=== PATIENT | female | born 1945 | race Caucasian/White ===

== ENCOUNTER → 2017-08-23 12:56 | Outpatient (CLI) | payer MEDICARE, SELFPAY ==
--- NOTE | 2017-08-23 12:59 | BD_ITS ---
STUDY: DUAL ENERGY X-RAY ABSORPTIOMETRY / DXA REASON FOR EXAM: Female, 71 years old. The patient is postmenopausal. Loss of height of 1 inch. TECHNIQUE: Bone Mineral Density (BMD) measurements of lumbar spine and bilateral hips were obtained. COMPARISON: Comparison is made with prior study dated June 22, 2011. FINDINGS: Lumbar Spine (L1-L4): g/cm2 (1.106) / T-score (-0.6) / Z-score (1.0) Findings are suggestive of normal bone density with a low fracture risk. Left Femur Total: g/cm2 (0.760) / T-score (-2.0) / Z-score (-0.5) Left Femoral Neck: g/cm2 (0.751) / T-score (-2.1) / Z-score (-0.4) Right Femur Total: g/cm2 (0.729) / T-score (-2.2) / Z-score (0.8) Right Femoral Neck: g/cm2 (0.688) / T-score (-2.5) / Z-score (-0.8) The T-Scores on the most recent prior examination were: Lumbar Spine (L1-L4): There has been improvement of bone density since the previous examination. Left Femur Total: which represents a worsening of 1.3%. Right Femur Total: which represents an improvement of 0.4%. BD/Dexa Bone Density Study IMPRESSION: The patient is considered osteopenic as outlined below according to World Jamison Organization (WHO) criteria with a moderate fracture risk. There has been improvement of bone density since the previous examination. Reference Information: The T-score is the number of standard deviations above or below the standard which is normal for young adults at their peak bone mineral density. The World Health Organization (WHO) interprets the T-scores as follows: Above -1 Normal bone density Between -1 and -2.5 Osteopenia Equal to / or below -2.5 Osteoporosis As a practical clinical guideline, osteopenia may be graded as follows: Mild -1 through -1.5 Moderate -1.6 through -2.0 Severe -2.1 through -2.4 The Z-score is the number of standard deviations above or below age-matched controls. A Z-score of less than -1.5 would be considered abnormal. References: 1. NIH Osteoporosis and Related Bone Diseases http://www.osteo.org 2. International Society for Clinical Densitometry http://www.iscd.org 3. National Osteoporosis Foundation http://www.nof.org Electronically Signed: Mark Parker MD at 13:52 EDT Tel [phone], Service support ,
--- NOTE | 2017-08-23 13:08 | HPBI_ITS ---
MAMMOGRAPHY - BILATERAL SCREENING REASON FOR EXAM: Female, 71 years old. Routine annual screening examination. PERTINENT HISTORY: Non-contributory. TECHNIQUE: Digital bilateral breast ce (3D mammographic acquisition) in the CC and MLO projections. 2-D mediolateral oblique (MLO) and craniocaudad (CC) views of both breasts were obtained. CAD: Full Field Digital Mammography with Computer Added Detection was performed. COMPARISON: Comparison is made with prior study dated August 16, 2016 and August 12, 2015. FINDINGS: Breast Composition: The breasts are almost entirely fatty. There are no dominant masses or suspicious calcifications. Stable 7 mm well-defined nodule in the upper outer portion of the left breast. This most likely represents a small intramammary lymph node. No other significant abnormalities are identified. There has been no significant change since the prior study. HPBI/SCREENING MAMM (CAD), BILAT IMPRESSION: Stable bilateral screening mammogram. Yearly follow-up mammogram recommended. (A) ASSESSMENT CATEGORY: BIRADS Category 2: Benign. A letter regarding these results will be sent to the patient by the facility within 30 days. Approximately 10% of breast cancers are not detected by mammography. A normal mammogram should not delay biopsy of a clinically suspicious abnormality. [id number] Electronically Signed: Mark Parker MD at 8:02 EDT Tel [phone], Service support ,
--- NOTE | 2017-08-23 13:08 | HPBI_ITS ---
MAMMOGRAPHY - BILATERAL SCREENING REASON FOR EXAM: Female, 71 years old. Routine annual screening examination. PERTINENT HISTORY: Non-contributory. TECHNIQUE: Digital bilateral breast edis (3D mammographic acquisition) in the CC and MLO projections. 2-D mediolateral oblique (MLO) and craniocaudad (CC) views of both breasts were obtained. CAD: Full Field Digital Mammography with Computer Added Detection was performed. COMPARISON: Comparison is made with prior study dated August 16, 2016 and August 12, 2015. FINDINGS: Breast Composition: The breasts are almost entirely fatty. There are no dominant masses or suspicious calcifications. Stable 7 mm well-defined nodule in the upper outer portion of the left breast. This most likely represents a small intramammary lymph node. No other significant abnormalities are identified. There has been no significant change since the prior study. BI/Bilat Brst Screen Edis Add-On IMPRESSION: Stable bilateral screening mammogram. Yearly follow-up mammogram recommended. (A) ASSESSMENT CATEGORY: BIRADS Category 2: Benign. A letter regarding these results will be sent to the patient by the facility within 30 days. Approximately 10% of breast cancers are not detected by mammography. A normal mammogram should not delay biopsy of a clinically suspicious abnormality. [id number] Electronically Signed: Mark Parker MD at 8:02 EDT Tel [phone], Service support ,
== END ==
PROVIDERS: Family Provider Family Medicine; PCP Family Medicine; Visit Provider Obstetrics & Gynecology
DX: Z12.31 Encounter for screening mammogram for malignant neoplasm of breast (principal); M85.9 Disorder of bone density and structure, unspecified
CPT/HCPCS: 77063; 77067; 77080

== ENCOUNTER → 2018-08-24 11:49 | Outpatient (CLI) | payer MEDICARE, SELFPAY ==
--- NOTE | 2018-08-24 11:52 | BI_ITS ---
MAMMOGRAPHY - BILATERAL SCREENING REASON FOR EXAM: Female, 72 years old. Routine annual screening examination. PERTINENT HISTORY: Non-contributory. TECHNIQUE: Digital bilateral breast ce (3D mammographic acquisition) in the CC and MLO projections. 2-D mediolateral oblique (MLO) and craniocaudad (CC) views of both breasts were obtained. CAD: Full Field Digital Mammography with Computer Added Detection was performed. COMPARISON: Comparison is made with prior study dated August 23, 2017 and August 16, 2016. FINDINGS: Breast Composition: The breasts are almost entirely fatty. There are no dominant masses or suspicious calcifications. Stable 6 mm nodular density in the upper slightly lateral aspect of the left breast. No other significant abnormalities are identified. There has been no significant change since the prior study. BI/SCREENING MAMM (CAD), BILAT IMPRESSION: Stable bilateral screening mammogram. Yearly follow-up mammogram recommended. (A) ASSESSMENT CATEGORY: BIRADS Category 2: Benign. A letter regarding these results will be sent to the patient by the facility within 30 days. Approximately 10% of breast cancers are not detected by mammography. A normal mammogram should not delay biopsy of a clinically suspicious abnormality. [id number] Electronically Signed: Mark Parker, at 13:26 EDT , Service support ,
== END ==
PROVIDERS: Family Provider Family Medicine; PCP Family Medicine; Referring Provider Obstetrics & Gynecology; Visit Provider Obstetrics & Gynecology
DX: Z12.31 Encounter for screening mammogram for malignant neoplasm of breast (principal)
CPT/HCPCS: 77063; 77067

== ENCOUNTER 2019-03-18 11:41 | Emergency (ER) | payer MEDICARE, SELFPAY ==
[2019-03-18 11:41] VITALS: BP 166/87; PULSE 85; RESP 18; TEMP 36.6; O2SAT 98; BMI 20.2
[2019-03-18 12:00] VITALS: BP 161/99; PULSE 92; RESP 18; O2SAT 98
--- NOTE | 2019-03-18 12:05 | EKG12_ITS ---
Test Reason : Blood Pressure : / mmHG Vent. Rate : 080 BPM Atrial Rate : 080 BPM P-R Int : 130 ms QRS Dur : 088 ms QT Int : 382 ms P-R-T Axes : 066 055 049 degrees QTc Int : 440 ms Normal sinus rhythm Normal ECG Confirmed by ALLISON SHANE, KANDIS ([id number]), editor in chief SCOT GUERRA ([id number]) on 03/20/2019 11:19:05 AM Referred By: Confirmed By:KANDIS COOPER MD
--- NOTE | 2019-03-18 12:05 | RAD_ITS ---
STUDY: X-RAY CHEST REASON FOR EXAM: Female, 73 years old. Chest and epigastric pain TECHNIQUE: AP COMPARISON: None. FINDINGS: The lungs are clear and expanded. There is no demonstrated pleural abnormality. Normal size heart. Normal mediastinum and fabiana. Normal visualized pulmonary arteries. Normal visualized aortic arch and descending thoracic aorta. EKG leads project over the chest. . There is no demonstrated abnormality of the visualized soft tissue structures of the upper abdomen. RAD/Chest 1 View (Portable) IMPRESSION: Nonacute portable x-ray examination of the chest. Electronically Signed: Antonio Chan MD ([place]) at 12:40 EDT , Service support ,
--- NOTE | 2019-03-18 12:06 | ED.VIS.GEN ---
History of Present Illness Chief Complaint: Chest Pain Detail of Chief Complaint: Nausea, neck pain Informant: Patient Onset: Yesterday Current Severity: Mild Maximum Severity: Mild Narrative: Patient presents with nausea that started yesterday afternoon. She states she was cooking dinner and the smells made her nauseated which is abnormal for her. She is able to make it through dinner okay while cleaning of the kitchen noted that she still felt queasy. She woke up several times during the night to have a bowel movement, but states it was normal. This morning she did not feel well so stayed in bed. When she got up she noted pain in her neck with radiation down both shoulders and into her upper arms. 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 She states she did get a brief episode where she felt a tight bandlike sensation around her right forearm. She denies any chest pain or shortness of breath. She still feels nauseated but has not had vomiting. She denies urinary symptoms. She initially thought she may have the flu but does realize she has no respiratory symptoms or fever. She states she was checking online to see what her symptoms might be and noted an article about atypical cardiac presentation in women and was concerned about her heart. Past Medical History - Allergies and Home Meds Allergies/Adverse Reactions: Allergies alendronate sodium [From Fosamax] Allergy (Verified 03/18/19 11:45) Other CHEST PAIN/MUSCLE ACHES oxybutynin Allergy (Verified 03/18/19 11:45) Swelling sulfamethoxazole [From Bactrim] Allergy (Verified 03/18/19 11:45) Rash trimethoprim [From Bactrim] Allergy (Verified 03/18/19 11:45) Rash acetaminophen [From Percocet] Adverse Reaction (Verified 03/18/19 11:45) Nausea aspirin [From Percodan] Adverse Reaction (Verified 03/18/19 11:45) Nausea corn Adverse Reaction (Verified 03/18/19 11:45) Nausea/Vom/Diarrhea ibandronate sodium [From Boniva] Adverse Reaction (Verified 03/18/19 11:45) Other CHEST PAIN, MUSCLE ACHES oxycodone HCl [From Percodan] Adverse Reaction (Verified 03/18/19 11:45) Nausea oxycodone terephthalate [From Percodan] Adverse Reaction (Verified 03/18/19 11:45) Nausea Primary Care Physician: Collin Queen III, MD [Primary Care Provider] - Prior records reviewed: Yes Past Medical History: - - Reviewed Surgical History: cholecystectomy, hysterectomy Lives: Spouse/ Significant Other Smoking Status: Never smoker - Family History Maternal Family History: Reports: Heart Disease - Her mother suffered from hypertension and had a myocardial infarction at 65 years of age. She was a nonsmoker. Paternal Family History: Reports: Cancer - Her father is from pancreatic cancer Review of Systems General: Denies: Chills, Fever Eyes: Denies: Visual changes - bilaterally ENT: Denies: Bilateral ear pain Cardiovascular: Denies: Chest pain, Palpitations Respiratory: Denies: Dyspnea, Cough Gastrointestinal: Reports: Nausea. Denies: Abdominal pain, Vomiting Musculoskeletal: Reports: Neck pain, Extremity Pain. Denies: Swelling Skin: Denies: Rash Neurological: Denies: Headache Hematologic: Denies: Easy bruising Allergy: Denies: Uticaria Physical Exam Vital Signs/Narrative: Vital Signs Temp Pulse Resp BP Pulse Ox 03/18/19 11:41 98 F 85 18 166/87 H 98 Inital Vital Signs reviewed: Yes General: Well nourished, Well developed Head: Normocephalic Eyes: Perrl, EOMI ENT: Moist mucous membranes Neck: Supple, - - Reproducible tenderness palpation bilateral cervical paraspinal muscles. Cardiovascular: Regular rate, Regular rhythm Respiratory: No distress, CTA bilaterally Abdomen: Soft, Nontender, Hypoactive bowel sounds Extremities: Nontender, No edema Skin: Normal color, No rash Neurological: Alert, Oriented x3, Normal Strength, Normal Sensation Psychological: Normal affect Diagnostic/Tx/Re-eval Impressions Chest X-Ray 03/18/19 12:05 IMPRESSION: Nonacute portable x-ray examination of the chest. Electronically Signed: Antonio Chan MD ([place]) at 12:40 EDT , Service support , 03/18/19 12:05 Chest 1 View (Portable) [RAD] Stat Laboratory Results 03/18/19 03/18/19 03/18/19 11:45 11:45 12:20 WBC 5.6 RBC 4.99 Hgb 15.5 H Hct 46.3 MCV 92.8 MCH 31.1 MCHC 33.5 RDW Std Deviation 42.5 RDW Coeff of Rosey 12.3 Plt Count 218 MPV 9.5 Immature Gran % (Auto) 0.200 Neut % (Auto) 57.3 Lymph % (Auto) 29.0 [place] % (Auto) 9.1 Eos % (Auto) 3.7 Baso % (Auto) 0.7 Absolute Neuts (auto) 3.2 Absolute Lymphs (auto) 1.63 Nucleated RBC % 0 Sodium 138 Potassium 3.6 Chloride 103 Carbon Dioxide 29.0 Anion Gap 6 BUN 16 Creatinine 1.05 H Estim Creat Clear Calc 37.08 Est GFR (MDRD) Af Amer 66 Est GFR (MDRD) Non-Af 55 L BUN/Creatinine Ratio 15.2 Glucose 151 H Calcium 9.1 Troponin I < 0.015 Urine Color Yellow Urine Clarity Clear Urine pH 6.0 Ur Specific [place] 1.020 Urine Protein Negative Urine Glucose (UA) Normal Urine Ketones Negative Urine Occult Blood 50 H Urine Nitrite Negative Urine Bilirubin Negative Urine Urobilinogen Normal Ur Leukocyte Esterase Negative Urine RBC 0-5 SEEN Urine WBC 0 SEEN Ur Squamous Epith Cells 0-5 SEEN Urine Bacteria RARE Urine Mucus 0 SEEN - EKG Initial EKG Interpretation: Sinus Rhythm - Sinus at 80 with no acute ischemia. - Medical Decision Making Patient was given IV fluids and Zofran. On repeat evaluation she feels improved. Systolic blood pressure is now in the 120s which is her baseline. Patient states overall she was just hoping for reassurance which we were able to provide for her. She will be given a prescription for Zofran as needed. ED Disposition - Plan for ED Patient: Disposition: Home or Assisted Living Diagnosis: Nausea, Neck strain Instructions: Neck Sprain/Strain Prescriptions: Ondansetron [Zofran Odt] 4 mg PO Q8H PRN PRN #10 tablet PRN Reason: Nausea Referrals: Collin Queen III, MD [Primary Care Provider] - As soon as possible
[2019-03-18] MEDS: Ondansetron 4 MG/2 ML Vial IV (12:22)
[2019-03-18] MEDS: 0.9% Normal Saline 1,000 ML 150 ML IV (12:22)
[2019-03-18 12:27] LABS: Anion Gap 6 (5-15); BUN 16 mg/dL (7-18); BUN/Creat Ratio 15.2 RATIO (10-20); Calcium,Total 9.1 mg/dL (8.5-10.1); Chloride 103 mmol/L (98-107); Creatinine, Serum 1.05 mg/dL (0.55-1.02); EST Glomerular Filtration Rate 55 mL/min (>60); Est Glom Filt Rate - Afr Amer 66 mL/min (>60); Estimated Creatinine Clearance 37.08 ml/min; Glucose 151 mg/dL (74-106); Potassium 3.6 mmol/L (3.5-5.1); Sodium Level 138 mmol/L (136-145)
[2019-03-18 12:32] LABS: Mucous, Urine 0 SEEN /hpf (<or=2+); White Blood Cells 0 SEEN /hpf (0-5)
[2019-03-18 12:38] LABS: Absolute Lymphocyte Count 1.63 X10^3/uL (0.83-4.51); Absolute Neutrophil Count 3.2 X10^3/uL (2.0-7.7); Basophil# 0.04 X10^3/uL; Basophil% 0.7 % (0-1); Eosinophil# 0.21 X10^3/uL; Eosinophils% 3.7 % (0-5); Hematocrit 46.3 % (37-47); Hemoglobin 15.5 g/dL (12.0-15.0); Lymphocyte # 1.63 X10^3/ul (4.0); Mean Corp Hgb Conc 33.5 g/dL (32-36); Mean Corpuscular Hgb 31.1 pg (27.0-32.0); Mean Corpuscular Volume 92.8 fL (81-99); Mean Platelet Vol. 9.5 fl (6.2-12.0); Monocyte# 0.51 X10^3/uL; Monocyte% 9.1 % (0-10); NRBC Flagged by Analyzer 0 % (0-5); Neutrophil # 3.22 X10^3/uL (2.7-7.7); Neutrophil % 57.3 % (47-70); Platelet Count 218 K/mm3 (150-450); RBC Distribution Width CV 12.3 % (11.6-14.6); RBC Distribution Width SD 42.5 fl (35.1-43.9); Red Blood Count 4.99 M/mm3 (4.2-5.4); White Blood Count 5.6 K/mm3 (4.4-11.0)
[2019-03-18 12:40] LABS: Color, Urine Yellow (Yellow); Glucose, Dipstick Normal (Normal); Ketone-Dipstick Negative (Negative); Leukocyte Esterase-Dipstick Negative /ul (Negative); Nitrite-Dipstick Negative (Negative); Occult Blood-Urine 50 /ul (Negative); Protein-Dipstick Negative (Negative); Urine Bilirubin Dipstick Negative (Negative); Urine Clarity Clear (Clear); Urine Urobilinogen Normal (Normal)
[2019-03-18 12:44] LABS: Bacteria RARE /hpf (None Seen); Red Blood Cells-Urine 0-5 SEEN /hpf (0-5); Squamous Epithelial Cells - UA 0-5 SEEN /hpf (5-10)
[2019-03-18 13:00] VITALS: BP 128/73; PULSE 68; RESP 18; O2SAT 97
== END 2019-03-18 14:01 | disposition home or self-care (01) ==
PROVIDERS: Emergency Provider Emergency Medicine; Family Provider Family Medicine; PCP Family Medicine
DX: R11.0 Nausea (principal); S16.1XXA Strain of muscle, fascia and tendon at neck level, initial encounter; X58.XXXA Exposure to other specified factors, initial encounter; Y93.9 Activity, unspecified; Y92.89 Other specified places as the place of occurrence of the external cause; Y99.9 Unspecified external cause status; Z82.49 Family history of ischemic heart disease and other diseases of the circulatory system; Z88.1 Allergy status to other antibiotic agents; Z88.2 Allergy status to sulfonamides; Z88.5 Allergy status to narcotic agent; Z88.6 Allergy status to analgesic agent; Z90.49 Acquired absence of other specified parts of digestive tract; Z90.710 Acquired absence of both cervix and uterus
CPT/HCPCS: 71045; 80048; 81001; 84484; 85025; 93005; 96361; 96374; 99284; J7030; A4216; J2405

== ENCOUNTER → 2019-10-02 12:29 | Outpatient (CLI) | payer MEDICARE, SELFPAY ==
--- NOTE | 2019-10-02 12:33 | BI_ITS ---
MAMMOGRAPHY - BILATERAL SCREENING REASON FOR EXAM: Female, 73 years old. Routine annual screening examination. PERTINENT HISTORY: Non-contributory. TECHNIQUE: Digital bilateral breast ladarius (3D mammographic acquisition) in the CC and MLO projections. 2-D mediolateral oblique (MLO) and craniocaudad (CC) views of both breasts were obtained. CAD: Full Field Digital Mammography with Computer Added Detection was performed. COMPARISON: Comparison is made with prior examination dated August 24, 2018 and August 23, 2017. FINDINGS: Breast Composition: The breasts are almost entirely fatty. There are no dominant masses or suspicious calcifications. Stable 6 mm well-defined nodule in the upper slightly lateral aspect of the left breast. This has the appearance of a small lymph node. No other significant abnormalities are identified. There has been no significant change since the prior study. BI/SCREEN MAMM (CAD) W/LADARIUS BILAT IMPRESSION: Stable bilateral screening mammogram. Yearly follow-up mammogram recommended. (A) ASSESSMENT CATEGORY: BIRADS Category 2: Benign. A letter regarding these results will be sent to the patient by the facility within 30 days. Approximately 10% of breast cancers are not detected by mammography. A normal mammogram should not delay biopsy of a clinically suspicious abnormality. [id number] Electronically Signed: Mark Parker, at 13:38 EDT , Service support ,
--- NOTE | 2019-10-02 12:37 | BD_ITS ---
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 COMPARISON: Comparison is made with prior examination dated August 23, 2017. FINDINGS: Lumbar Spine (L1-L4): g/cm2 (0.980) / T-score (-1.5) / Z-score (0.2) Findings are suggestive of osteopenia with a low fracture risk. Left Femur Total: g/cm2 (0.781) / T-score (-1.8) / Z-score (-0.2) Left Femoral Neck: g/cm2 (0.808) / T-score (-1.7) / Z-score (0.1) Right Femur Total: g/cm2 (0.703) / T-score (-2.4) / Z-score (-0.9) Right Femoral Neck: g/cm2 (0.693) / T-score (-2.5) / Z-score (-0.7) The T-Scores on the most recent prior examination were: Lumbar Spine (L1-L4): There has been worsening of bone density since the previous examination. Left Femur Total: which represents an improvement of 2.8%. Right Femur Total: which represents a worsening of 3.6%. BD/Dexa Bone Density Study IMPRESSION: The patient is considered osteoporotic as outlined below according to World Jamison Organization (WHO) criteria with a high fracture risk. There has been worsening of bone density since the previous examination. Reference Information: The T-score is the number of standard deviations above or below the standard which is normal for young adults at their peak bone mineral density. The World Health Organization (WHO) interprets the T-scores as follows: Above -1 Normal bone density Between -1 and -2.5 Osteopenia Equal to / or below -2.5 Osteoporosis As a practical clinical guideline, osteopenia may be graded as follows: Mild -1 through -1.5 Moderate -1.6 through -2.0 Severe -2.1 through -2.4 The Z-score is the number of standard deviations above or below age-matched controls. A Z-score of less than -1.5 would be considered abnormal. References: 1. NIH Osteoporosis and Related Bone Diseases http://www.osteo.org 2. International Society for Clinical Densitometry http://www.iscd.org 3. National Osteoporosis Foundation http://www.nof.org Electronically Signed: Mark Parker, at 15:23 EDT , Service support ,
== END ==
PROVIDERS: PCP Family Medicine; Referring Provider Obstetrics & Gynecology; Visit Provider Obstetrics & Gynecology
DX: Z12.31 Encounter for screening mammogram for malignant neoplasm of breast (principal); M81.0 Age-related osteoporosis without current pathological fracture
CPT/HCPCS: 77063; 77067; 77080

== ENCOUNTER 2020-09-02 07:14 | Day surgery (SDC) | payer MEDICARE, SELFPAY ==
[2020-09-02] VITALS (7 sets, daily range): BP systolic 84–136; BP diastolic 37–78; PULSE 67–94; RESP 16; TEMP 35.9–36.8; O2SAT 97–100; BMI 21.2
--- NOTE | 2020-09-02 07:33 | HP.PCM_ITS ---
Problem List (1) GERD (gastroesophageal reflux disease) Status: Acute Qualifiers: History and Physical Date of Admission: 09/02/20 Intake Visit Reasons: GERD/NEEDS EGD Chief Complaint: GERD Global Regulatory Affairs Manager Required: No Is patient in pain?: No Allergies alendronate sodium [From Fosamax] Allergy (Verified 03/18/19 11:45) Other oxybutynin Allergy (Verified 03/18/19 11:45) Swelling sulfamethoxazole [From Bactrim] Allergy (Verified 03/18/19 11:45) Rash trimethoprim [From Bactrim] Allergy (Verified 03/18/19 11:45) Rash acetaminophen [From Percocet] Adverse Reaction (Verified 03/18/19 11:45) Nausea aspirin [From Percodan] Adverse Reaction (Verified 03/18/19 11:45) Nausea corn Adverse Reaction (Verified 03/18/19 11:45) Nausea/Vom/Diarrhea ibandronate sodium [From Boniva] Adverse Reaction (Verified 03/18/19 11:45) Other oxycodone HCl [From Percodan] Adverse Reaction (Verified 03/18/19 11:45) Nausea oxycodone terephthalate [From Percodan] Adverse Reaction (Verified 03/18/19 11:45) Nausea Medications Calcium Carb/Vitamin D [Caltrate-600 With Vit D Tab] 1 tab PO BIDCM 07/09/14 [History Confirmed 03/25/20] Estradiol [Estrace] 1 applicatio VAGINALLY QWEEK PRN 07/09/14 [History Confirmed 03/25/20] albuterol sulfate 90 mcg/actuation aerosol inhaler 2 puff INHALATION Q4H PRN PRN #1 inhaler 02/28/18 [Rx Confirmed 03/25/20] cholecalciferol (vitamin D3) 25 mcg (1,000 unit) capsule 25 mcg PO DAILY 03/25/20 [History Confirmed 03/25/20] clotrimazole-betamethasone 1 %-0.05 % topical cream 1 applic TOPICAL BID 03/25/20 [History Confirmed 03/25/20] hydrocortisone 2.5 % topical cream 1 applic TOPICAL TID PRN 03/25/20 [History Confirmed 03/25/20] Is last menstrual period known: No Post menopausal: Yes Patient : No PFSH Medical History (Updated 03/25/20 @ 15:[address] Chinmay Queen MD) Hemorrhoid (Acute) White coat syndrome with hypertension (Acute) Asthma (Acute) Mitral valve disorder (Acute) GERD (gastroesophageal reflux disease) (Acute) Chest pain (Acute) Hyperlipidemia (Chronic) Dyspnea on exertion (Chronic) History of uterine fibroid (Chronic) Surgical History (Updated 03/25/20 @ 14:20 by Sarahi Medina) History of cataract extraction (Acute) History of cholecystectomy (Acute) History of hemorrhoidectomy (Acute) History of tubal ligation (Acute) History of esophagogastroduodenoscopy (EGD) (Acute ~2009) History of hysterectomy for benign disease (Chronic) Family History (Updated 03/25/20 @ 14:07 by Sarahi Medina) Mother Myocardial infarction Heart disease Father Cancer pancreas Social History (Updated 03/25/20 @ 15:[address] Chinmay Queen MD) Smoking Status: Never smoker HPI HPI HPI: BEV NORRIS, is a 74 F who presents to the office today for surgical consultation regarding 3-year history of heartburn. She is intolerant to gwnv-rbb-vblezps acid suppression medications that have cornstarch to them. She has been able to take Prevacid but then that has caused her diarrhea. Unfor tunately even cimetidine has cornstarch in it. She has had a remote upper endoscopy February 11, 2010. The Z-line was slightly irregular there was no evidence of Cardoso's at that time. She did casiano ve a benign fundic gland polyp. Her medication intolerance currently makes treating her reflux disease more challenging. She is also having some waxing and waning epigastric pain. The patient tells me that recent laboratory was abnormal. From Dr. Collin Queen, III on March 13, 2020 I have a lipase level that was 40 which is normal white blood cell count was 6.26 with a hemoglobin 14.5 hematocrit 44.1 platelet count 267,000 total protein was 7 albumin 4.4 calcium 9.6 total bilirubin 0.7 alkaline phosphatase 134 AST 37 minimally over normal of 35 and glucose 97. BUN was 17 and creatinine 0.89. Amylase was 104 high normal being 104 I have additional records from Dr. Rosi Tucker dated December 30, 2015 performed at the [facility]. Laparoscopic cholecystectomy with cholangiograms. There were felt to be air bubbles seen in the common bile duct but they were felt not to be his gallstones. Final pathology however showed chronic cholecystitis cholelithiasis. The operative note reads as per normal. There does not appear to be any unusual difficulty or inflammatory changes The patient does have a family history of pancreatic cancer in her father. She is scheduled to have a CT scan performed on March 28, 2020 The patient is referred by Dr. Collin Queen III for surgical consultation regarding epigastric pain and suspected reflux disease. A written copy of my surgical consult recommendations will return to him. HPI HPI HPI: BEV NORRIS, is a 74 F who presents to the office today for ROS General General: No weight change, appetite, fatigue, colon cancer, breast cancer or weakness HEENT HEENT: No difficulty swallowing, eye injury, eye surgery, swollen glands or hoarseness Endo Endocrine: No thyroid disease, diabetes mellitus, thyroid cancer, Hair loss, heat intolerance or cold intolerance Musc Musculoskeletal: No back problems, arthritis, rheumatoid arthritis, gout or joint pain Cardio Cardiovascular: No murmur, pacemaker, heart disease, atrial fibrillation, high blood pressure, heart attack, heart stent, palpitations, shortness of breat with exertion or chest pain Psych Psychiatric: No depression, anxiety or hearing voices Resp Respiratory: No shortness of breath, No sleep apnea, No cough, No COPD, No asthma, No emphysema, No wheezing Gastro Gastrointestinal: No abdominal pain, No nausea or vomiting, No diarrhea, No constipation, No blood in stool, Yes acid reflux, Yes hemorrhoids, No ulcers, No gallbladder problem, No black,tarry stools Antwan Hematologic: No blood thinners, No blood disorders, No bleeding, No anemia, No blood clots Neuro Neurologic: No weakness Exam Const General: cooperative, healthy appearing, comfortable, no acute distress Nutritional Appearance: average body habitus Orientation: alert, awake [facility] Head: normal to inspection Eyes General: appearance normal, both eyes and all related structures Resp Effort & Inspection: normal respiratory effort Auscultation: clear to auscultation bilaterally Cardio Rate: regular rate Rhythm: regular rhythm Heart Sounds: no murmurs GI Palpation: soft, no hepatosplenomegaly Auscultation: normal bowel sounds Musc Cervical Spine: normal cervical lordosis Skin General: no rashes or lesions noted Extrem General: no calf tenderness Psych Affect: normal affect Assessment & Plan Problems 1. Gastroesophageal reflux disease, unspecified whether esophagitis present K21.9 Plan 74-year-old female with signs and symptoms with consistent with gastroesophageal reflux disease. I am recommending to her a esophagogastroduodenoscopy with biopsy. She has intolerant to cornstarch. I would recommend biopsying duodenum stomach distal esophagus and midesophagus. Careful inspection for reflux changes or Cardoso's changes will be pursued. The patient might be a future candidate for a surgical approach to treat reflux disease particularly in light of her intolerance to acid suppression medications. Although her lipase and amylase were normal her alkaline phosphatase minimally elevated a CT scan is pending. She was felt to have air bubbles at the time of her laparoscopic cholecystectomy cholangiogram in 2016. It is possible though that she could have a retained common bile duct stone. A mass lesion of the pancreas needs to be excluded. If the patient actually is identified as having a common bile duct stone then I will want to recruit the assistance of Dr. Caleb Kearney. And if that were the case then perhaps the patient could have an ERCP and at the same setting routine EGD with biopsies rather than having to have 2 procedures. She has had an opportunity to ask and have questions answered. I very much appreciate the kind opportunity of assisting with her surgical care. Copy: Dr. Collin Queen, III Chinmay Queen M.D., F.A.C.S. Orders Orders: EGD Today Coding Level of Care Code 48396 Diagnoses Gastroesophageal reflux disease, unspecified whether esophagitis present K21.9 ??Esophagitis presence: esophagitis presence not specified CT scan performed at [facility] did not demonstrate a pancreatic mass. There was felt to be cyst hemangioma of the liver. At that time there were no acute findings. Chinmay Queen M.D., F.A.C.S. Procedure Criteria Procedure Type: Elective COVID Risk Discussion: The surgeon/proceduralist and patient have discussed in detail the risk of exposure to and/or potential harm posed by the COVID-19 virus with having a surgery/procedure at this time versus the risk of delaying the surgery/procedure. It is not possible to know either the risk of delaying the surgery or procedure or chance of getting an infection with perfect accuracy, but a joint decision was made between the patient and the surgeon/proceduralist to proceed at this time with the scheduled surgery/procedure as indicated on the consent form.
[2020-09-02] MEDS: Lactated Ringers 1,000 ML 100 ML IV (07:48)
--- NOTE | 2020-09-02 08:15 | IMM_PTH ---
PATIENT: BEV NORRIS LOC: EN U#:[id number] AGE/SX: 74/F ROOM: RE09/02/[address]: Dr. Chinmay Queen MD : 1945 BED: DIS: 09/02/2020 SPEC #: [id number] RECD: 09/02/20 13:26 STATUS: SARAN REUriel #: [id number] RODERICK: 09/02/20 08:[address]: Chinmay Queen DEPT: IMMUNOHISTOCHEMISTRY RECD BY: Venita Youssef ENTERED: 09/02/20 13:26 SP TYPE: IMMUNO OTHR DR: Dr. Collin Queen III, MD Tissues: B - Stomach, NOS Procedures: H Pylori (initial) PHYSICIAN & INSTITUTION [place] [id number] SPECIMEN INFORMATION: Tissue Source: B - Antrum biopsy Clinical Info: GERD Specimen Number: [id number] CPT code: 70057 METHODOLOGY: Deparaffinized sections of prefer/formalin-fixed tissue or PAP/DQ stained slides are incubated with monoclonal/polyclonal antibodies/oligonucleotide probes. Localization is made via biotin free immunoperoxidase method. Appropriate controls are performed and reacted as expected. Results on target cell population are indicated in the following table: RESULTS: ANTIBODY / CLONE RESULT Block B H Pylori (polyclonal) negative These tests were developed and their performance characteristics determined by [facility]. They may not have been cleared or approved by the U.S. Food and Drug Administration. The FDA has determined that such clearance or approval is not necessary. INTERPRETATION: B. Antrum biopsy: Negative for Helicobacter pylori organisms. SJ:corrina 09/03/2020
--- NOTE | 2020-09-02 08:15 | EGD_PTH ---
PATIENT: BEV NORRIS LOC: EN U#:[id number] AGE/SX: 74/F ROOM: RE09/02/[address]: Dr. Chinmay Queen MD : 1945 BED: DIS: 09/02/2020 SPEC #: [id number] RECD: 09/02/20 10:37 STATUS: SARAN SPENSERUriel #: [id number] RODERICK: 09/02/20 08:[address]: Chinmay Queen DEPT: SURGICAL PATHOLOGY RECD BY: Velia Love ENTERED: 09/02/20 12:55 SP TYPE: EGD BIOPSY OT DR: Dr. Collin Queen III, MD Tissues: A - Duodenum, NOS B - Gastric mucous membrane C - Gastric mucous membrane D - Esophagus, NOS Procedures: Special Stain Group II Surgery Specimen Level IV Alcian Blue/PAS (control) HEADER OPER[place] [place] DIAGNOSIS: GERD TISSUE SUBMITTED: A - Duodenum biopsy, B - Antrum biopsy for H. pylori and path, C - GE junction biopsy, D - Mid esophagus MICROSCOPIC DIAGNOSIS A. Duodenum, biopsy: A fragment of duodenal mucosa with mild Davide gland hyperplasia and focal gastric metaplasia. B. Antrum, biopsy: Mild gastritis. See microscopic description and comment. C. GE junction, biopsy: Fragments of gastroesophageal mucosa with mild chronic inflammation. Intestinal metaplasia (goblet cell metaplasia) not identified. See comment. D. Mid esophagus, biopsy: A fragment of squamous epithelium, no pathologic diagnosis. SJ:corrina 09/03/2020 COMMENT B. The results of immunohistochemistry for Helicobacter pylori will be reported separately ([id number]). C. Alcian blue/PAS stain with matched control is used in the evaluation of the specimen. MICROSCOPIC DESCRIPTION Slides are reviewed. B. The specimen shows fragments of gastric mucosa with chronic inflammatory cell infiltrates in the lamina propria consisting of lymphocytes and plasma cells, consistent with mild chronic gastritis. GROSS DESCRIPTION A - Received in fixative is one container labeled with the patient's name and designated duodenum biopsy. The specimen consists of one irregular fragment of light bailey soft tissue that measures 0.6 x 0.2 x 0.1 cm. The specimen is totally submitted in one cassette. B - Received in fixative is one container labeled with the patient's name and designated antrum biopsy. The specimen consists of one irregular fragment of light bailey soft tissue that measures 0.3 x 0.3 x 0.1 cm. The specimen is totally submitted in one cassette. C - Received in fixative is one container labeled with the patient's name and designated GE junction biopsy. The specimen consists of multiple irregular fragments of light bailey soft tissue that in aggregate measure 0.6 x 0.4 x 0.1 cm. The specimen is totally submitted in one cassette. D - Received in fixative is one container labeled with the patient's name and designated mid esophagus biopsy. The specimen consists of one irregular fragment of light bailey soft tissue that measures 0.6 x 0.3 x 0.1 cm. The specimen is totally submitted in one cassette. / SJ:rg 09/02/20 TC:3 CPT: 00118 x4, [id number]
--- NOTE | 2020-09-02 08:33 | OP.EGD_ITS ---
Patient Name: Shelia Caballero Procedure Date: 09/02/2020 8:09 AM Date of : 1945 Age: 74 Procedure: Upper GI endoscopy Indications: Suspected esophageal reflux Providers: Chinmay Queen MD Referring MD: Collin Queen Iii Medicines: See the Anesthesia note for documentation of the administered medications Complications: No immediate complications. Procedure: Pre-Anesthesia Assessment: - Prior to the procedure, a History and Physical was performed, and patient medications and allergies were reviewed. The patient's tolerance of previous anesthesia was also reviewed. The risks and benefits of the procedure and the sedation options and risks were discussed with the patient. All questions were answered, and informed consent was obtained. Prior Anticoagulants: The patient has taken no previous anticoagulant or antiplatelet agents. ASA Grade Assessment: II - A patient with mild systemic disease. After reviewing the risks and benefits, the patient was deemed in satisfactory condition to undergo the procedure. After obtaining informed consent, the endoscope was passed under direct vision. Throughout the procedure, the patient's blood pressure, pulse, and oxygen saturations were monitored continuously. The Endoscope was introduced through the mouth, and advanced to the second part of duodenum. The upper GI endoscopy was accomplished without difficulty. The patient tolerated the procedure well. Scope In: 8:21:02 AM Scope Out: 8:27:14 AM Total Procedure Duration Time 0 hours 6 minutes 12 seconds Findings: LA Grade A (one or more mucosal breaks less than 5 mm, not extending between tops of 2 mucosal folds) esophagitis with no bleeding was found 37 cm from the incisors. Biopsies were taken with a cold forceps for histology. The mid esophagus was normal. Biopsies were taken with a cold forceps for histology. A medium-sized hiatal hernia was present. Diffuse mildly erythematous mucosa without bleeding was found in the gastric antrum. Biopsies were taken with a cold forceps for histology. The examined duodenum was normal. Biopsies were taken with a cold forceps for histology. Impression: - LA Grade A reflux esophagitis. Biopsied. - Normal mid esophagus. Biopsied. - Medium-sized hiatal hernia. - Erythematous mucosa in the antrum. Biopsied. - Normal examined duodenum. Biopsied. Recommendation: - Discharge patient to home. - Resume previous diet. - Continue present medications. - Telephone my office for pathology results in 1 week. Suspect reflux as etiology to globus and cough Patient states she is intolerant to multiple reflux meds Will await pathology Procedure Code(s): --- Professional --- 99875, Esophagogastroduodenoscopy, flexible, transoral; with biopsy, single or multiple Diagnosis Code(s): --- Professional --- K21.0, Gastro-esophageal reflux disease with esophagitis K44.9, Diaphragmatic hernia without obstruction or gangrene K31.89, Other diseases of stomach and duodenum CPT copyright 2017 [employer]. All rights reserved. The codes documented in this report are preliminary and upon automotive artist review may be revised to meet current compliance requirements. Chinmay Queen MD 09/02/2020 8:33:01 AM This report has been signed electronically. Number of Addenda: 0 Note Initiated On: 09/02/2020 8:09 AM
--- NOTE | 2020-09-02 08:33 | OP.CCLET_ITS ---
09/02/2020 Collin Queen Iii [address] [place] [address] Re : Upper GI endoscopy procedure for Shelia Ada Dear Dr. Queen This procedure was performed on Wednesday, September 02, 2020. My impressions and recommendations are as follows: Impressions : - LA Grade A reflux esophagitis. Biopsied. - Normal mid esophagus. Biopsied. - Medium-sized hiatal hernia. - Erythematous mucosa in the antrum. Biopsied. - Normal examined duodenum. Biopsied. Recommendations : - Discharge patient to home. - Resume previous diet. - Continue present medications. - Telephone my office for pathology results in 1 week. Suspect reflux as etiology to globus and cough Patient states she is intolerant to multiple reflux meds Will await pathology My findings are described in the full procedure note, which is enclosed. If I can be of further assistance, please feel free to contact me at Doctor phone number(s): Work: . Sincerely, Chinmay Queen MD 09/02/2020 8:33:01 AM This report has been signed electronically.
== END 2020-09-02 09:19 | disposition home or self-care (01) ==
LOC: EN 07:14 → AC 07:16
PROVIDERS: PCP Family Medicine; Referring Provider Family Medicine; Visit Provider Surgery
PROC: 0DJ08ZZ Inspection of Upper Intestinal Tract, Via Natural or Artificial Opening Endoscopic (ICD-10-PCS; CPT 43235; principal; 2020-09-02 08:10)
DX: K21.00 Gastro-esophageal reflux disease with esophagitis, without bleeding (principal); K44.9 Diaphragmatic hernia without obstruction or gangrene; K29.70 Gastritis, unspecified, without bleeding; K31.89 Other diseases of stomach and duodenum; J45.990 Exercise induced bronchospasm; Z80.0 Family history of malignant neoplasm of digestive organs; Z79.899 Other long term (current) drug therapy; Z87.19 Personal history of other diseases of the digestive system
CPT/HCPCS: 43239; 88305; 88313; 88342; J7120; J2405

== ENCOUNTER → 2020-10-15 12:39 | Outpatient (CLI) | payer MEDICARE, SELFPAY ==
[2020-09-02 07:37] VITALS: BMI 21.2
--- NOTE | 2020-10-15 12:41 | BI_ITS ---
MAMMOGRAPHY - BILATERAL SCREENING REASON FOR EXAM: Female, 74 years old. Routine annual screening examination. PERTINENT HISTORY: Non-contributory. TECHNIQUE: Digital bilateral breast ladarius (3D mammographic acquisition) in the CC and MLO projections. 2-D mediolateral oblique (MLO) and craniocaudad (CC) views of both breasts were obtained. CAD: Full Field Digital Mammography with Computer Added Detection was performed. COMPARISON: Comparison is made with prior study dated 10/02/2019 and 08/24/2018. FINDINGS: Breast Composition: The breasts are almost entirely fatty. There are no dominant masses or suspicious calcifications. There is a stable 6 mm well-defined nodule in the upper slightly outer aspect of the left breast. This most likely represents a small benign appearing lymph node. Stable small axillary lymph nodes. No other significant abnormalities are identified. There has been no significant change since the prior study. BI/SCRN MAMM (CAD)W/LADARIUS BILAT IMPRESSION: Stable bilateral screening mammogram. Yearly follow-up mammogram recommended. (A) ASSESSMENT CATEGORY: BIRADS Category 2: Benign. A letter regarding these results will be sent to the patient by the facility within 30 days. Approximately 10% of breast cancers are not detected by mammography. A normal mammogram should not delay biopsy of a clinically suspicious abnormality. [id number] Electronically Signed: Mark Parker MD at 13:25 EDT , Service support ,
== END ==
PROVIDERS: PCP Family Medicine; Referring Provider Student in an Organized Health Care Education/Training Program; Visit Provider Student in an Organized Health Care Education/Training Program
DX: Z12.31 Encounter for screening mammogram for malignant neoplasm of breast (principal)
CPT/HCPCS: 77063; 77067

== ENCOUNTER → 2021-02-02 10:04 | Outpatient (CLI) | payer MEDICARE, SELFPAY ==
[2021-02-04 16:08] LABS: Corn <0.10 kU/L (Class 0); Garlic <0.10 kU/L (Class 0); Gluten <0.10 kU/L (Class 0); Yeast <0.10 kU/L (Class 0)
[2021-02-04 19:29] LABS: Onion <0.10 kU/L (Class 0); Wheat <0.10 kU/L (Class 0)
== END ==
PROVIDERS: PCP Family Medicine; Referring Provider Otolaryngology Otolaryngology/Facial Plastic Surgery; Visit Provider Otolaryngology Otolaryngology/Facial Plastic Surgery
DX: T78.40XA Allergy, unspecified, initial encounter (principal)
CPT/HCPCS: 36415; 86003

== ENCOUNTER → 2021-02-24 07:46 | Outpatient (REF) | payer SELFPAY | LOC: CVS 07:46 | PROVIDERS: PCP Family Medicine | DX: Z00.00 Encounter for general adult medical examination without abnormal findings (principal) ==

== ENCOUNTER → 2021-10-20 | Outpatient (CLI) | payer MEDICARE, SELFPAY ==
--- NOTE | 2021-10-20 13:24 | BI_ITS ---
MAMMOGRAPHY - BILATERAL SCREENING REASON FOR EXAM: Female, 75 years old. Routine annual screening examination. PERTINENT HISTORY: Non-contributory. TECHNIQUE: Digital bilateral breast ladarius (3D mammographic acquisition) in the CC and MLO projections. 2-D mediolateral oblique (MLO) and craniocaudad (CC) views of both breasts were obtained. CAD: Full Field Digital Mammography with Computer Added Detection was performed. COMPARISON: Comparison is made with prior study dated 10/15/2020 and 10/02/2019. FINDINGS: Breast Composition: The breasts are almost entirely fatty. There are no dominant masses or suspicious calcifications. Stable 6 mm well-defined nodule in the upper slightly outer aspect of the left breast. This most likely represents a small lymph node. Stable benign-appearing bilateral axillary lymph nodes. No other significant abnormalities are identified. There has been no significant change since the prior study. BI/SCRN MAMM (CAD)W/LADARIUS BILAT IMPRESSION: Stable bilateral screening mammogram. Yearly follow-up mammogram recommended. (A) ASSESSMENT CATEGORY: BIRADS Category 2: Benign. A letter regarding these results will be sent to the patient by the facility within 30 days. Approximately 10% of breast cancers are not detected by mammography. A normal mammogram should not delay biopsy of a clinically suspicious abnormality. [id number] Electronically Signed: Mark Parker MD at 14:47 EDT ,
--- NOTE | 2021-10-20 13:27 | BD_ITS ---
STUDY: DUAL ENERGY X-RAY ABSORPTIOMETRY / DXA REASON FOR EXAM: Female, 75 years old. Z780. Patient is postmenopausal. TECHNIQUE: Bone Mineral Density (BMD) measurements of lumbar spine and bilateral hips were obtained. COMPARISON: Comparison is made with prior study of 10/02/2019. FINDINGS: Lumbar Spine (L1-L4): g/cm2 (0.901) / T-score (-1.4) / Z-score (1.0) Findings are suggestive of osteopenia with a low fracture risk. Left Femur Total: g/cm2 (0.733) / T-score (-1.7) / Z-score (0.0) Left Femoral Neck: g/cm2 (0.627) / T-score (-2.0) / Z-score (0.0) Right Femur Total: g/cm2 (0.711) / T-score (-1.9) / Z-score (-0.2) Right Femoral Neck: g/cm2 (0.605) / T-score (-2.2) / Z-score (-0.2) The T-Scores on the most recent prior examination were: Lumbar Spine (L1-L4): There has been improvement of bone density since the previous examination. Left Femur Total: which represents an improvement of 1.7%. Right Femur Total: which represents an improvement of 10.1%. BD/Dexa Bone Density Study IMPRESSION: The patient is considered osteopenic as outlined below according to World [employer] Organization (WHO) criteria with a moderate fracture risk. There has been improvement of bone density since the previous examination. Reference Information: The T-score is the number of standard deviations above or below the standard which is normal for young adults at their peak bone mineral density. The World Health Organization (WHO) interprets the T-scores as follows: Above -1 Normal bone density Between -1 and -2.5 Osteopenia Equal to / or below -2.5 Osteoporosis As a practical clinical guideline, osteopenia may be graded as follows: Mild -1 through -1.5 Moderate -1.6 through -2.0 Severe -2.1 through -2.4 The Z-score is the number of standard deviations above or below age-matched controls. A Z-score of less than -1.5 would be considered abnormal. References: 1. NIH Osteoporosis and Related Bone Diseases www osteo.org 2. International Society for Clinical Densitometry www iscd.org 3. National Osteoporosis Foundation www nof.org Electronically Signed: Mark Parker MD at 15:44 EDT ,
== END | disposition home or self-care (01) ==
PROVIDERS: PCP Family Medicine; Visit Provider Obstetrics & Gynecology
DX: Z12.31 Encounter for screening mammogram for malignant neoplasm of breast (principal); Z78.0 Asymptomatic menopausal state
CPT/HCPCS: 77063; 77067; 77080

== ENCOUNTER → 2022-07-16 | Outpatient (CLI) | payer MEDICARE, SELFPAY ==
--- NOTE | 2022-07-16 06:31 | ECHOD_ITS ---
Reason For Study: Palpitations Procedure This was a 2D Doppler, Color Flow transthoracic echocardiogram. Myocardial strain analysis was performed in this exam to aid in the assessment of cardiac function. Exam performed in department. Left Ventricle Normal LV size. Left ventricular systolic function is normal. The estimated ejection fraction is 60 %. Stage 1 diastolic dysfunction. No regional wall motion abnormalities noted. Right Ventricle Normal RV size. Normal systolic function. Atria Normal left atrium. Normal right atrium. Mitral Valve Normal mitral valve. Mild (1+) eccentric mitral valve insufficiency. Tricuspid Valve Normal tricuspid valve. Mild tricuspid valve insufficiency. Pulmonary artery systolic pressure is 24 mmHg. Aortic Valve Normal aortic valve. Trisinus/trileaflet aortic valve. Pulmonic Valve Normal pulmonic valve. Great Vessels Normal aortic root. The pulmonary artery is normal size. Normal inferior vena cava. Pericardium/Pleural No pericardial effusion. MMode/2D Measurements & Calculations LVIDd: 4.8 cm IVSd: 0.64 cm Ao root diam: 2.5 cm LVIDs: 2.9 cm LVPWd: 0.67 cm RVDd: 3.3 cm FS: 39.1 % LAV(MOD-bp): 35.4 ml LVAd ap4: 16.9 cm2 SV(MOD-sp4): 24.2 ml LAV(MOD-bp) Indexed: 24.2 ml/m2 LVLd ap4: 5.9 cm LAV(MOD-sp2): 35.6 ml EDV(MOD-sp4): 39.2 ml LAV(MOD-sp4): 33.1 ml EDV(sp4-el): 41.0 ml LVAs ap4: 9.4 cm2 LVLs ap4: 5.1 cm ESV(MOD-sp4): 14.9 ml ESV(sp4-el): 14.8 ml EF(MOD-sp4): 61.9 % EF(sp4-el): 63.8 % SV(sp4-el): 26.1 ml LA A4 area: 13.2 cm2 LA dimension(2D): 3.4 cm RA A4 area: 10.8 cm2 Time Measurements MV dec time: 0.17 sec Doppler Measurements & Calculations MV E max mookie: 65.4 cm/sec Lat Peak E' Mookie: 5.2 cm/sec Med Peak E' Mookie: 5.8 cm/sec MV A max mookie: 74.7 cm/sec E/E' lat: 12.7 E/E' med: 11.3 MV E/A: 0.88 Ao V2 max: 120.1 cm/sec LV V1 max: 92.9 cm/sec MV dec slope: 376.9 cm/sec2 Ao max P.8 mmHg LV V1 max P.5 mmHg Ao V2 mean: 88.5 cm/sec Ao mean P.4 mmHg Ao V2 VTI: 29.0 cm PA V2 max: 95.5 cm/sec TR max mookie: 224.5 cm/sec TR max P.2 mmHg ECHO/Echo Complete Interpretation Summary Normal LV size. Left ventricular systolic function is normal. The estimated ejection fraction is 60 %. Mild (1+) eccentric mitral valve insufficiency. Stage 1 diastolic dysfunction. The global longitudinal strain is normal. The global longitudinal strain = -19. 7 % (normal). Ordering Physician: Hua Frances Referring Physician: Abdirahman Patel Performed By: Bessie Miller, RDCS, RVT
--- NOTE | 2022-07-16 16:46 | STRESSREP ---
Stress Test Report Exercise myocardial perfusion stress test. 76-year-old lady with a history of chest pain and palpitations Stress protocol: Resting EKG demonstrates normal sinus rhythm with occasional premature ventricular complex and a rate of 80 bpm resting blood pressure is 132/70 mmHg. The patient exercised according to the regular Calvin protocol for a total duration of 12 minutes attaining a maximum heart rate of 155 bpm which was 106% of maximum predicted heart rate; the maximum workload was 13.4 metabolic equivalents. At rest there were no ST or T wave changes noted to suggest ischemia and at peak exercise upsloping ST changes only were noted which did not meet the criteria for ischemia. No clinical angina was noted the test was terminated due to the target heart rate being achieved/fatigue. The peak blood pressure was 170/64 mmHg. Rate-pressure product was 26,300. Myocardial perfusion protocol. 12.0 mCi of technetium 99m sestamibi was injected at rest. The patient exercised according to regular Calvin protocol for total duration of 12 minutes and at peak exercise 35.8 mCi of technetium 99m sestamibi was injected stress images were obtained stress and rest images were reconstructed in comparing the short axis vertical long and horizontal long axis. Perfusion SPECT analysis: Review of the stress images demonstrate normal uptake of tracer noted in all areas of the myocardium. The resting images similarly demonstrate normal uptake of tracer noted in all areas of the myocardium. No areas of reversibility are noted to suggest ischemia no previous infarct was noted. Conclusion: Normal exercise myocardial perfusion stress test at a high workload
== END | disposition home or self-care (01) ==
PROVIDERS: PCP Family Medicine; Visit Provider Internal Medicine Cardiovascular Disease
DX: R07.9 Chest pain, unspecified (principal); R00.2 Palpitations
CPT/HCPCS: 78452; 93017; 93225; 93226; 93306; A9500

== ENCOUNTER → 2022-10-21 | Outpatient (CLI) | payer MEDICARE, SELFPAY ==
--- NOTE | 2022-10-21 10:39 | BI_ITS ---
MAMMOGRAPHY - BILATERAL SCREENING REASON FOR EXAM: Female, 76 years old. Routine annual screening examination. PERTINENT HISTORY: Non-contributory. TECHNIQUE: Digital bilateral breast ladarius (3D mammographic acquisition) in the CC and MLO projections. 2-D mediolateral oblique (MLO) and craniocaudad (CC) views of both breasts were obtained. CAD: Full Field Digital Mammography with Computer Added Detection was performed. COMPARISON: Comparison is made with prior study dated October 20, 2021 and October 15, 2020. FINDINGS: Breast Composition: The breasts are almost entirely fatty. There are no dominant masses or suspicious calcifications. Stable 6 mm well-defined nodule in the upper slightly outer aspect of the left breast stable small benign-appearing bilateral axillary lymph nodes. No other significant abnormalities are identified. There has been no significant change since the prior study. BI/SCRN MAMM (CAD)W/LADARIUS BILAT IMPRESSION: Stable bilateral screening mammogram. Yearly follow-up mammogram recommended. (A) ASSESSMENT CATEGORY: BIRADS Category 2: Benign. A letter regarding these results will be sent to the patient by the facility within 30 days. Approximately 10% of breast cancers are not detected by mammography. A normal mammogram should not delay biopsy of a clinically suspicious abnormality. [id number] Electronically Signed: Mark Parker MD at 11:59 EDT ,
== END | disposition home or self-care (01) ==
LOC: OPBI 10:38
PROVIDERS: PCP Family Medicine; Referring Provider Obstetrics & Gynecology; Visit Provider Obstetrics & Gynecology
DX: Z12.31 Encounter for screening mammogram for malignant neoplasm of breast (principal)
CPT/HCPCS: 77063; 77067

== ENCOUNTER → 2023-07-20 | Outpatient (CLI) | payer MEDICARE, SELFPAY | END | disposition home or self-care (01) | LOC: PSN 08:22 | PROVIDERS: PCP Family Medicine; Referring Provider Nurse Practitioner Family; Visit Provider Nurse Practitioner Family | DX: R00.2 Palpitations (principal); I49.3 Ventricular premature depolarization; E78.5 Hyperlipidemia, unspecified | CPT/HCPCS: 93225; 93226 ==

== ENCOUNTER → 2023-10-25 | Outpatient (CLI) | payer MEDICARE, SELFPAY ==
--- NOTE | 2023-10-25 14:49 | BI_ITS ---
MAMMOGRAPHY - BILATERAL SCREENING REASON FOR EXAM: Female, 77 years old. Routine annual screening examination. PERTINENT HISTORY: Non-contributory. TECHNIQUE: Digital bilateral breast ladarius (3D mammographic acquisition) in the CC and MLO projections. 2-D mediolateral oblique (MLO) and craniocaudad (CC) views of both breasts were obtained. CAD: Full Field Digital Mammography with Computer Added Detection was performed. COMPARISON: Comparison is made with prior study dated October 21, 2022 and October 20, 2021. FINDINGS: Breast Composition: The breasts are almost entirely fatty. There are no dominant masses or suspicious calcifications. Stable 6 mm well-defined nodule in the upper slightly outer aspect of the left breast. This is unchanged. This most likely represents a small intramammary lymph node. No other significant abnormalities are identified. There has been no significant change since the prior study. BI/SCRN MAMM (CAD)W/LADARIUS BILAT IMPRESSION: Stable bilateral screening mammogram. Yearly follow-up mammogram recommended. (A) ASSESSMENT CATEGORY: BIRADS Category 2: Benign. A letter regarding these results will be sent to the patient by the facility within 30 days. Approximately 10% of breast cancers are not detected by mammography. A normal mammogram should not delay biopsy of a clinically suspicious abnormality. [id number] Electronically Signed: Mark Parker MD at 8:11 EDT ,
--- NOTE | 2023-10-25 14:56 | BD_ITS ---
STUDY: DUAL ENERGY X-RAY ABSORPTIOMETRY / DXA REASON FOR EXAM: Female, 77 years old. M810 TECHNIQUE: Bone Mineral Density (BMD) measurements of lumbar spine and bilateral hips were obtained. COMPARISON: Comparison is made with prior study dated October 20, 2021. FINDINGS: Lumbar Spine (L1-L4): g/cm2 (0.923) / T-score (-1.2) / Z-score (1.3) Findings are suggestive of osteopenia with a low fracture risk. Left Femur Total: g/cm2 (0.756) / T-score (-1.5) / Z-score (0.3) Left Femoral Neck: g/cm2 (0.677) / T-score (-1.6) / Z-score (0.6) Right Femur Total: g/cm2 (0.696) / T-score (-2.0) / Z-score (-0.2) Right Femoral Neck: g/cm2 (0.586) / T-score (-2.4) / Z-score (-0.2) The T-Scores on the most recent prior examination were: Lumbar Spine (L1-L4): There has been improvement of bone density since the previous examination. Left Femur Total: which represents an improvement of 3.2%. Right Femur Total: which represents a worsening of 2.1%. BD/DXA BONE DENS W/VERT FX ASMT IMPRESSION: The patient is considered osteopenic as outlined below according to World [employer] Organization (WHO) criteria with a high fracture risk. There has been improvement of bone density since the previous examination. Reference Information: The T-score is the number of standard deviations above or below the standard which is normal for young adults at their peak bone mineral density. The World Health Organization (WHO) interprets the T-scores as follows: Above -1 Normal bone density Between -1 and -2.5 Osteopenia Equal to / or below -2.5 Osteoporosis As a practical clinical guideline, osteopenia may be graded as follows: Mild -1 through -1.5 Moderate -1.6 through -2.0 Severe -2.1 through -2.4 The Z-score is the number of standard deviations above or below age-matched controls. A Z-score of less than -1.5 would be considered abnormal. References: 1. NIH Osteoporosis and Related Bone Diseases www osteo.org 2. International Society for Clinical Densitometry www iscd.org 3. National Osteoporosis Foundation www nof.org Electronically Signed: Mark Parker MD at 8:36 EDT ,
== END | disposition home or self-care (01) ==
PROVIDERS: PCP Family Medicine; Referring Provider Obstetrics & Gynecology; Visit Provider Obstetrics & Gynecology
DX: Z12.31 Encounter for screening mammogram for malignant neoplasm of breast (principal); M81.0 Age-related osteoporosis without current pathological fracture
CPT/HCPCS: 77063; 77067; 77085

== ENCOUNTER 2024-05-03 14:00 | Outpatient (RCR) | payer MEDICARE, SELFPAY ==
--- NOTE | 2024-04-13 07:45 | HP.OTEVAL_ITS ---
Patient's Visit Information Visit Information Visit Information: BEV NORRIS is a 78 year old F, referred to Occupational Therapy by Dr. Jonathan Arzate MD, with a diagnosis of right CMC OA. Date of Evaluation: 04/12/24 Occupational Therapist: SUSIE Almeida/Chrissy, CHT Subjective Subjective: This 78 year old female was seen for OT eval with dx of right cmc OA. pt states she noticed increase difficulty with cooking and salomón this seas on. Pt states she would like to know what she can do to decrease pain with use of right hand with ADLs and IADLs by d/c. pt also demo with Dupuytren's but states as long as she can place her hand flat on the table Dr. Arzate told her not to worry about it. pt is active and has a health and wellness membership and she hopes to cont. her workouts and salomón without pain. 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 with ADLs by d.c Goal:: pt will report no pain greater than 1/10 with use of left hand with ADLs and IADLs by d.c Goal:: Pt will demo understanding of joint protection and ergonomics when performing BADLs and IADLs by d/c Pt will demo understanding of adaptive Equipment use to decrease stress on joints to allow pt to perform BADSL and IADLS at JOSE level. Goal:: Pt will demo understanding of using supportive bracing 80% of workday/ADLS to decrease stress on tendon origin to allow healing and decrease pain by end of 2nd session. Rehabilitation General Assessment: pt demo with symptoms of pain with right thumb at CMC J - pt struggles with daily tasks due to painful thumbs. pt would benefit from skilled OT services 3-4 visits to ensure ed. on joint protection genaro, ad. eq. bracing/orthosis to decrease pain and decrease stress on joint/ligament structures with use of hands. Today therapist ed. pt on joint protection genaro., gave info on thumb care book- ed. on supportive bracing/orthosis, use of k-tape to support cmc as well as ad.eq. to decrease stress on joints in kitchen. Pt demo understanding and agree to POC. Anticipated Interventions Anticipated Interventions: Modalities, Orthoses, Joint Protection/Energy Conservation, Ergonomic Education, Education re assistive Equipment, Education re Diagnosis and Home Program Visit Plan Frequency: 1 visit in 3 weeks TEXT: Thank you for the opportunity to evaluate your patient. For Medicare and Medicare HMO plans, please review the plan of care and approve it. It will need to be FAXED BACK to us at [phone] for Medicare purposes. Please let me know if there are questions or concerns regarding this plan of care. Physician Signature: Date:
--- NOTE | 2024-07-31 08:46 | HP.OT.NRP ---
Patient Information Patient Information: BEV NORRIS was seen in my office for initial evaluation on 04/12/24. The following Plan of Care was established for this patient: POC Established Initial Frequency: 1 visit in 3 weeks Plan: pt to cont. with HEP Anticipated Interventions Anticipated Interventions: Modalities, Orthoses, Joint Protection/Energy Conservation, Ergonomic Education, Education re assistive Equipment, Education re Diagnosis and Home Program Last Seen Last Seen: This patient was last seen in our office 05/03/24. Pertinent comments regarding their Occupational therapy will appear below: pt was seen for 2 OT sessions. No further scheduled apts at this time and due to time lapse in services pt is d/c at this time. At this point I will be discontinuing this patient from occupational therapy. I would be happy to see this patient again in the future if found appropriate by the physician. Thank you! Sheridan Miranda, OTR/L, CHT
== END 2024-05-03 19:00 | disposition home or self-care (01) ==
LOC: OT 14:00
PROVIDERS: PCP Family Medicine; Referring Provider Orthopaedic Surgery Hand Surgery; Visit Provider Orthopaedic Surgery Hand Surgery
DX: M18.11 Unilateral primary osteoarthritis of first carpometacarpal joint, right hand (principal)
CPT/HCPCS: 97110; 97166; 97530

== ENCOUNTER 2024-07-16 07:50 | Day surgery (SDC) | payer MEDICARE, SELFPAY ==
--- NOTE | 2024-07-12 09:55 | PAT.ANESEVAL ---
Pre-Assessment Diagnosis/Proposed Procedure Planned Operative Procedure(s): EGD Anesthesia History Anesthesia History - compliance officer: Anesthesia History - compliance officer Hx Hospitalization No 07/12/24 09:27 Any Problems With Anesthesia No: SENSITIVE ALITTLE GOES 07/12/24 09:[address] Cholinesterase deficiency No 07/12/24 09:27 You/Your Family Experience No 07/12/24 09:27 fever (hyperthermia) with Relationship Recent Exposure to Contagious No 09/02/20 07:37 Disease Does patient have nerve No 07/12/24 09:27 stimulator Patient instructed to have device shut off --Does patient have Pacemaker or ICD? When Was Last Pacemaker Check QUESTION #4 FULL TEXT: You/Your Family Experience fever (hyperthermia) with Anesthesia Last Oral Intake Last Oral intake: Last Oral Intake NPO since Meds taken in AM with sips of water? Meds patient instructed to take am of surgery PONV PONV - compliance officer: PONV - compliance officer Female Yes 07/12/24 09:27 HX of Motion Sickness Yes 07/12/24 09:27 HX of N/V After Surgery No 07/12/24 09:27 Non-Smoker Yes 07/12/24 09:27 Duration of Surgery greater No 07/12/24 09:27 than 60 minutes Number of Risk Factors 3 07/12/24 09:27 PONV Score Moderate Risk 07/12/24 09:27 Height & Weight Height & Weight: Anesthesia: Height & Weight Height 5 ft 2.5 in 12/19/23 09:29 Respiratory Assessment Respiratory Assessment - compliance officer: Respiratory Tract Infection Hx - compliance officer Hx Respiratory Tract Infection No: POST NASAL DRIP/DRY 07/12/24 09:27 COUGH STOP Sleep Apnea STOP Sleep Apnea - compliance officer: STOP Sleep Apnea - compliance officer Hx Hypertension Yes: NO MED FOR 1 YR 07/12/24 09:27 Hx Sleep Apnea No 07/12/24 09:27 CPAP No 08/27/20 10:36 BIPAP No 08/27/20 10:36 Do you snore loudly (louder No 07/12/24 09:27 than talking or can be heard Do you often feel tired/ No 07/12/24 09:27 fatigued/ sleepy during daytime? Has anyone observed you stop No 07/12/24 09:27 breathing during sleep? STOP Results Negative 07/12/24 09:27 QUESTION #5 FULL TEXT : Do you snore loudly (louder than talking or can be heard through closed doors)? Tobacco Use History Tobacco Use History - compliance officer: Tobacco Use History - compliance officer Tobacco Use Smoking Status Never smoker 07/12/24 09:27 Hx Tobacco Use No 07/12/24 09:27 Years Smoking Packs Smoked per Day Smoking Cessation Date was within the last 15 years Hx Smoking Cessation Date Hx Smoking Cessation Counseling Hematologic Medial History Hematologic Hx - compliance officer: Hematologic Medical Hx - voucher examiner Hx of Blood Transfusion No 07/12/24 09:27 Hx of Transfusion in last 3 No 07/12/24 09:27 Months Date of Last Transfusion (if within last 3 months) Ever experience any problems No 07/12/24 09:27 with transfusion(s)? Specify any problems Hx of Preganancy in last 3 No 07/12/24 09:27 Months Nurse Filling Out Transfusion DSCHRIBER 07/12/24 09:27 & Questions: Date: 07/12/24 07/12/24 09:27 Time: :07/12/24 09:27 Patient unable to answer at this time (ie. confused, unrespo /Reproduction History /Reproductive History - compliance officer: /Reproductive Hx- compliance officer Hx Now No 07/12/24 09:27 Gestational Age (in weeks): EDC: Hx Hx Para Hx Section SAB No 07/12/24 09:27 PFSH Medical History (Updated 07/12/24 @ 09:38 by Claudette Abraham) Wears glasses Cancer Post-menopausal Anxiety High cholesterol Back pain Gastric reflux Non-smoker Asthma Leg cramps History of normal Holter exam History of stress test History of echocardiogram Hypertension Cardiology follow-up encounter History of irregular heartbeat Vitiligo Venous parker of lip Psoriasis Non-functioning kidney Melanocytic nevi of trunk Lichen sclerosus Malignant neoplasm of skin Hiatal hernia CKD (chronic kidney disease) Benign liver cyst Acute gastritis without mention of hemorrhage Right foot sprain Hemorrhoid White coat syndrome with hypertension Mitral valve disorder GERD (gastroesophageal reflux disease) Chest pain Hyperlipidemia Dyspnea on exertion History of uterine fibroid Home Medications ?Medication ?Instructions ?Recorded ?Last Taken ?Type cholecalciferol (vitamin D3) 25 25 mcg PO DAILY 03/25/20 Unknown History mcg (1,000 unit) capsule hydrocortisone 2.5 % topical cream 1 applic topical TID PRN 03/25/20 Unknown History Rash/Topical Irritation alendronate 35 mg tablet 35 mg PO QWEEK 06/30/22 Unknown History Held on 07/12/24. Instructions: MD Ordered estradiol 0.01% (0.1 mg/gram) 1 appful vaginal 2XW Not Specified 06/30/22 Unknown History vaginal cream clobetasol 0.05 % topical ointment 1 applic topical DAILY PRN SKIN 07/05/22 Unknown History calcium ER 600 mg (as carb,cit)-D3 2 tab PO DAILY 07/07/22 Unknown History 12.5 mcg (500 unit) tablet, ext.rel (Citracal-D3 Slow Release) calcium carbonate ([place]calak) 168 mg PO TID PRN dyspepsia 04/11/24 Unknown History Allergy/AdvReac Type Severity Reaction Status Date / Time oxybutynin Allergy Swelling Verified 07/12/24 09:25 risedronate sodium Allergy Chest Verified 07/12/24 09:25 tightness sulfamethoxazole (From Allergy Rash Verified 07/12/24 09:25 Bactrim) trimethoprim (From Bactrim) Allergy Rash Verified 07/12/24 09:25 corn AdvReac Nausea/Vom/ Verified 07/12/24 09:25 Diarrhea ibandronate sodium (From AdvReac Other Verified 07/12/24 09:25 Boniva) oxycodone HCl (From Percodan) AdvReac Nausea Verified 07/12/24 09:25 oxycodone terephthalate AdvReac Nausea Verified 07/12/24 09:25 (From Percodan) pimecrolimus (From Elidel) AdvReac chills Verified 07/12/24 09:25 Proton Pump Inhibitors AdvReac Diarrhea Verified 07/12/24 09:25 raloxifene AdvReac Vision Verified 07/12/24 09:25 problems Family History Mother Myocardial infarction Heart disease Father Cancer pancreas Grandmother Diabetes Grandfather Myocardial infarction Surgical History (Updated 07/12/24 @ 09:38 by Claudette Abraham) H/O colonoscopy History of appendectomy History of cataract extraction History of cholecystectomy History of hemorrhoidectomy History of tubal ligation History of esophagogastroduodenoscopy (EGD) (~2009) History of hysterectomy for benign disease Social History (Updated 04/11/24 @ 10:44 by Gladys Shelton) Smoking Status: Never smoker alcohol intake: current alcohol intake frequency: a few times a week substance use type: does not use caffeine: Yes Type: coffee Number of servings: 1 and tea Number of servings: 1 what type of physical activity do you participate in: walking and weight training frequency: daily Audit: Pertinent Findings Pertinent Findings EKG Perinent findings: Twelve-lead ECG on 07/07/2023 showed sinus bradycardia rate of 59 bpm, AL interval 124, QTc 393, and QRS 82. She notes improvement in side effects since stopping metoprolol. She was asked to discontinue it. (3) PVC (premature ventricular contraction) Stress test pertinent findings: Stress Test 07/16/22: Normal exercise myocardial perfusion stress test at a high workload. Echo (EF%) pertinent findings: Normal LV size. Left ventricular systolic function is normal. The estimated ejection fraction is 60 %. Mild (1+) eccentric mitral valve insufficiency. Stage 1 diastolic dysfunction. The global longitudinal strain is normal. The global longitudinal strain = -19.7 % (normal). Additional pertinent findings: Her Holter monitor From June 2022 showed a PVC burden of 15.4%. Repeat Holter monitor in June 2023 showed ventricular ectopy of 6.3%. This was noted after stopping GERD medication. Her echocardiogram in June 2022 showed normal LV size and function. Her stress test in June 2022 was negative for ischemia at a high workload. Overall, we will continue to monitor. She only notes PVC with palpitations. She denies physical palpitations with activity. Recommendation Anesthesia Recommendation Anesthesia recommendation: OPTIMIZED for anesthesia Follow up Details Cadiac/Pulmonary Imaging Recommendation: Yes Cadiac/Pulmonary Imaging Rec Details: Repeat 12 Lead ECG
[2024-07-16] VITALS (8 sets, daily range): BP systolic 91–145; BP diastolic 61–69; PULSE 64–72; RESP 16; TEMP 36.1–36.7; O2SAT 94–100; BMI 20.8
--- NOTE | 2024-07-16 | IMM_PTH ---
PATIENT: BEV NORRIS LOC: EN U#:[id number] AGE/SX: 78/F ROOM: RE07/16/[address]: Dr. Rashaad Huang DO : 1945 BED: DIS: 07/16/2024 SPEC #: [id number] RECD: 07/17/24 11:32 STATUS: SARAN REQ #: [id number] RODERICK: 07/16/24 00:[address]: Rashaad Huang DEPT: IMMUNOHISTOCHEMISTRY RECD BY: Shyam Godfrey ENTERED: 07/17/24 11:32 SP TYPE: IMMUNO KRISTINA DR: Dr. Abdirahman Patel MD Tissues: Esophagus, NOS Procedures: P53 (initial) KI-67 (add) PHYSICIAN & [place] [id number] SPECIMEN INFORMATION: Tissue Source: Distal esophagus biopsy Clinical Info: GERD Specimen Number: [id number] CPT code: 06827,56374 METHODOLOGY: Deparaffinized sections of prefer/formalin-fixed tissue or PAP/DQ stained slides are incubated with monoclonal/polyclonal antibodies/oligonucleotide probes. Localization is made via biotin free immunoperoxidase method. Appropriate controls are performed and reacted as expected. Results on target cell population are indicated in the following table: RESULTS: ANTIBODY / CLONE RESULT P53 (DO-7) negative (null pattern) Ki-67 (30-9) positive, low These tests were developed and their performance characteristics determined by [facility]. They may not have been cleared or approved by the U.S. Food and Drug Administration. The FDA has determined that such clearance or approval is not necessary. The above immunohistochemical/dualISH markers are ordered and reviewed by the Pathologist. INTERPRETATION: Distal esophagus, biopsy: Negative for dysplasia. 07/18/2024
--- NOTE | 2024-07-16 08:33 | PRE.ANES_ITS ---
ASA Classification* ASA Classification ASA Classification: 3 Assessment & Plan Anesthesia* Anesthesia Assessment Anesthesia Assessment: Discussed sedation and/or anesthesia options, risks, benefits, and alternatives with patient/parents/legal guardian/POA. Questions invited. The patient/parents/legal guardian/POA seems to understand and agrees to proceed with anesthesia plan. Reviewed the physical assessment, medical history, allergy history and patient home medications list prior to surgery/procedure/anesthetic and documented any changes. Performed airway and anesthesia risk assessments. Anesthesia Type Anesthesia Type: MAC History Source History Obtained from:: Patient and Chart Anesthesia Focused Assessment* Temperature: 97.5 F Pulse Rate: 64 Blood Pressure: 145/61 Respiratory Rate: 16 Pulse Ox: 99 Oxygen Delivery Method: Room Air Vital signs additional comments: dry cough Airway Assessment Mouth opens: 2 cm Mallampati Score: II Teeth Condition: Caps/Crowns (back left bottom last 2 teeth) Neck Range of motion (ROM): Full ROM Focused Labs Anesthesia Preop lab: CBC WBC 5.6 K/mm3 (4.4-11.0) 03/18/19 11:45 03/18/19 RBC 4.99 M/mm3 (4.2-5.4) 03/18/19 11:45 03/18/19 Hgb 15.5 g/dL (12.0-15.0) H 03/18/19 11:45 9 Hct 46.3 % (37-47) 03/18/19 11:45 03/18/19 Plt Count 218 K/mm3 (150-450) 03/18/19 11:45 03/18/19 CHEMISTRY Potassium 3.6 mmol/L (3.5-5.1) 03/18/19 11:45 03/18/19 Sodium 138 mmol/L (136-145) 03/18/19 11:45 03/18/19 BUN 16 mg/dL (7-18) 03/18/19 11:45 03/18/19 Creatinine 1.05 mg/dL (0.55-1.02) H 03/18/19 11:45 Glucose 151 mg/dL (74-106) H 03/18/19 11:45 03/18/19 COAG Pre-Assessment Diagnosis/Proposed Procedure Planned Operative Procedure(s): EGD Anesthesia History Anesthesia History - psychologist research assistant: Anesthesia History - psychologist research assistant Hx Hospitalization No 07/12/24 09:27 Any Problems With Anesthesia No: SENSITIVE ALITTLE GOES 07/12/24 09:[address] Cholinesterase deficiency No 07/12/24 09:27 You/Your Family Experience No 07/12/24 09:27 fever (hyperthermia) with Relationship Recent Exposure to Contagious No 07/16/24 08:16 Disease Does patient have nerve No 07/12/24 09:27 stimulator Patient instructed to have device shut off --Does patient have Pacemaker No 07/16/24 08:16 or ICD? When Was Last Pacemaker Check QUESTION #4 FULL TEXT: You/Your Family Experience fever (hyperthermia) with Anesthesia Last Oral Intake Last Oral intake: Last Oral Intake NPO since Meds taken in AM with sips of water? Meds patient instructed to take am of surgery Any additional information?: Yes NPO since: 20:00 Meds taken in AM with sips of water?: No PONV PONV - psychologist research assistant: PONV - psychologist research assistant Female Yes 07/12/24 09:27 HX of Motion Sickness Yes 07/12/24 09:27 HX of N/V After Surgery No 07/12/24 09:27 Non-Smoker Yes 07/12/24 09:27 Duration of Surgery greater No 07/12/24 09:27 than 60 minutes Number of Risk Factors 3 07/12/24 09:27 PONV Score Moderate Risk 07/12/24 09:27 Height & Weight Height & Weight: Anesthesia: Height & Weight Height 5 ft 1 in 07/16/24 08:16 Weight: 50 kg 07/16/24 08:16 Body Mass Index (BMI) 20.8 07/16/24 08:16 Respiratory Assessment Respiratory Assessment - psychologist research assistant: Respiratory Tract Infection Hx - psychologist research assistant Hx Respiratory Tract Infection No: POST NASAL DRIP/DRY 07/12/24 09:27 COUGH Any additional information?: Yes Hx Respiratory Tract Infection: No (patient has a cough from post nasal drip and GERD) STOP Sleep Apnea STOP Sleep Apnea - psychologist research assistant: STOP Sleep Apnea - psychologist research assistant Hx Hypertension Yes: NO MED FOR 1 YR 07/12/24 09:27 Hx Sleep Apnea No 07/12/24 09:27 CPAP No 08/27/20 10:36 BIPAP No 08/27/20 10:36 Do you snore loudly (louder No 07/12/24 09:27 than talking or can be heard Do you often feel tired/ No 07/12/24 09:27 fatigued/ sleepy during daytime? Has anyone observed you stop No 07/12/24 09:27 breathing during sleep? STOP Results Negative 07/12/24 09:27 QUESTION #5 FULL TEXT : Do you snore loudly (louder than talking or can be heard through closed doors)? Tobacco Use History Tobacco Use History - psychologist research assistant: Tobacco Use History - psychologist research assistant Tobacco Use Smoking Status Never smoker 07/12/24 09:27 Hx Tobacco Use No 07/12/24 09:27 Years Smoking Packs Smoked per Day Smoking Cessation Date was within the last 15 years Hx Smoking Cessation Date Hx Smoking Cessation Counseling Hematologic Medial History Hematologic Hx - psychologist research assistant: Hematologic Medical Hx - cardiovascular sonographer Hx of Blood Transfusion No 07/12/24 09:27 Hx of Transfusion in last 3 No 07/12/24 09:27 Months Date of Last Transfusion (if within last 3 months) Ever experience any problems No 07/12/24 09:27 with transfusion(s)? Specify any problems Hx of Preganancy in last 3 No 07/12/24 09:27 Months Nurse Filling Out Transfusion DSCHRIBER 07/12/24 09:27 & Questions: Date: 07/12/24 07/12/24 09:27 Time: 09:29 07/12/24 09:27 Patient unable to answer at this time (ie. confused, unrespo /Reproduction History /Reproductive History - psychologist research assistant: /Reproductive Hx- psychologist research assistant Hx Now No 07/12/24 09:27 Gestational Age (in weeks): EDC: Hx Hx Para Hx Section SAB No 07/12/24 09:27 PFSH Medical History Wears glasses Cancer Post-menopausal Anxiety High cholesterol Back pain Gastric reflux Non-smoker Asthma Leg cramps History of normal Holter exam History of stress test History of echocardiogram Hypertension Cardiology follow-up encounter History of irregular heartbeat Vitiligo Venous parker of lip Psoriasis Non-functioning kidney Melanocytic nevi of trunk Lichen sclerosus Malignant neoplasm of skin Hiatal hernia CKD (chronic kidney disease) Benign liver cyst Acute gastritis without mention of hemorrhage Right foot sprain Hemorrhoid White coat syndrome with hypertension Mitral valve disorder GERD (gastroesophageal reflux disease) Chest pain Hyperlipidemia Dyspnea on exertion History of uterine fibroid Home Medications ?Medication ?Instructions ?Recorded ?Last Taken ?Type cholecalciferol (vitamin D3) 25 25 mcg PO DAILY Unknown History mcg (1,000 unit) capsule hydrocortisone 2.5 % topical cream 1 applic topical TI D PRN 03/25/20 Unknown History Rash/Topical Irritation alendronate 35 mg tablet 35 mg PO QWEEK 06/30/22 Unkn own History Held on 07/12/24. Instructions: MD Ordered estradiol 0.01% (0.1 mg/gram) 1 appful vaginal 2XW Not Specified 06/30/22 Unknown History vaginal cream clobetasol 0.05 % topical ointment 1 applic topical DA JIMMY PRN SKIN 07/05/22 Unknown History calcium ER 600 mg (as carb,cit)-D3 2 tab PO DAILY 06/23 10/12 Unknown History 12.5 mcg (500 unit) tablet, ext.rel (Citracal-D3 Slow Release) calcium carbonate (Alcalak) 168 mg PO TID PRN dyspepsi a 04/11/24 Unknown History Allergy/AdvReac Type Severity Reaction Status Date / Time oxybutynin Allergy Swelling Verified 07/16/24 08:14 risedronate sodium Allergy Chest Verified 07/16/24 08:14 tightness sulfamethoxazole (From Allergy Rash Verified 07/16/24 08:14 Bactrim) trimethoprim (From Bactrim) Allergy Rash Verified 07/16/24 08:14 corn AdvReac Nausea/Vom/ Verified 07/16/24 08:14 Diarrhea ibandronate sodium (From AdvReac Other Verified 07/16/24 08:14 Boniva) oxycodone HCl (From Percodan) AdvReac Nausea Verified 07/16/24 08:14 oxycodone terephthalate AdvReac Nausea Verified 07/16/24 08:14 (From Percodan) pimecrolimus (From Elidel) AdvReac chills Verified 07/16/24 08:14 Proton Pump Inhibitors AdvReac Diarrhea Verified 07/16/24 08:14 raloxifene AdvReac Vision Verified 07/16/24 08:14 problems Family History Mother Myocardial infarction Heart disease Father Cancer pancreas Grandmother Diabetes Grandfather Myocardial infarction Surgical History (Updated 07/12/24 @ 09:38 by Claudette Abraham) H/O colonoscopy History of appendectomy History of cataract extraction History of cholecystectomy History of hemorrhoidectomy History of tubal ligation History of esophagogastroduodenoscopy (EGD) (~2009) History of hysterectomy for benign disease Social History (Updated 04/11/24 @ 10:44 by Gladys Shelton) Smoking Status: Never smoker alcohol intake: current alcohol intake frequency: a few times a week substance use type: does not use caffeine: Yes Type: coffee Number of servings: 1 and tea Number of servings: 1 what type of physical activity do you participate in: walking and weight training frequency: daily Review of Systems (Anesthesia) ROS Narrative System reviewed and no additional complaints, except as documented. Physical Exam Const alert and oriented x3 HEENT dentition normal Neck full ROM Resp normal respiratory effort Auscultation: clear to auscultation bilaterally Neuro oriented x3 and moves all extremities
--- NOTE | 2024-07-16 09:00 | EGD_PTH ---
PATIENT: BEV NORRIS LOC: EN U#:[id number] AGE/SX: 78/F ROOM: RE07/16/[address]: Dr. Rashaad Huang DO : 1945 BED: DIS: 07/16/2024 SPEC #: [id number] RECD: 07/16/24 10:37 STATUS: SARAN REQ #: [id number] RODERICK: 07/16/24 09:[address]: Rashaad Huang DEPT: SURGICAL PATHOLOGY RECD BY: Velia Love ENTERED: 07/16/24 10:47 SP TYPE: EGD BIOPSY OT DR: Dr. 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 Chronic inflammation. Negative for dysplasia. See comment. 07/17/2024 COMMENT Alcian blue/PAS stain with matched control is used in the evaluation of the specimen. Immunohistochemistry ([id number]) for P53 and Ki-67 will be performed, and results will be reported separately. MICROSCOPIC DESCRIPTION Slides are reviewed. GROSS DESCRIPTION Received in fixative is one container labeled with the patient's name and designated Distal esophagus biopsy. The specimen consists of multiple irregular fragments of light bailey soft tissue that in aggregate measure 1.2 x 0.4 x 0.1 cm. The specimen is totally submitted in one cassette. 07/16/2024 TC:3 CPT:24940,75629 ADDENDUM ADDENDUM ADDENDUM ADDENDUM ADDENDUM ADDENDUM ADDENDUM ADDENDUM ADDENDUM ADDENDUM 08/27/2024 16:15 ADDENDUM 08/27/2024 16:15 ADDENDUM 08/27/2024 16:15 ADDENDUM 08/27/2024 16:15 ADDENDUM 08/27/2024 16:15 [facility] RESULT: RISK CLASS: LOW RISK SCORE: 1.1 5-YEAR PROBABILITY OF PROGRESSION: 0.50% Please see complete report in e-chart or EMR
--- NOTE | 2024-07-16 09:16 | PCM.HP.STD ---
HPI - General General Date of Admission: 07/16/24 Date of Service: 07/16/24 Chief Complaint: GERD with Cardoso's esophagus HPI Narrative BEV NORRIS, is a 78 F who presents for endoscopic surveillance of GERD with Cardoso's esophagus Pt has a long hx of GERD and has seen numerous GI in the past. She has been treated with PPI therapy, famotidine and TUMs. She has had bad reactions to both PPI and famotidine with diarrhea and PVCs. She is currently managing with lifestyle changes and no medications. She avoids trigger foods like wine, chocolate, garlic, onion and tomato. She sleeps with head of the bed inclined at night. Her last EGD was a few years ago with Dr. Queen. She has no lower GI symptoms but is due for a colonoscopy. She would like to do Cologuard and will discuss this with her PCP. EGD 09.02.21: - LA Grade A reflux esophagitis. Biopsied. - Normal mid esophagus. Biopsied. - Medium-sized hiatal hernia. - Erythematous mucosa in the antrum. Biopsied. - Normal examined duodenum. Biopsied Biopsies showing metaplasia FOR[facility], [facility] Medical History Wears glasses Cancer Post-menopausal Anxiety High cholesterol Back pain Gastric reflux Non-smoker Asthma Leg cramps History of normal Holter exam History of stress test History of echocardiogram Hypertension Cardiology follow-up encounter History of irregular heartbeat Vitiligo Venous parker of lip Psoriasis Non-functioning kidney Melanocytic nevi of trunk Lichen sclerosus Malignant neoplasm of skin Hiatal hernia CKD (chronic kidney disease) Benign liver cyst Acute gastritis without mention of hemorrhage Right foot sprain Hemorrhoid White coat syndrome with hypertension Mitral valve disorder GERD (gastroesophageal reflux disease) Chest pain Hyperlipidemia Dyspnea on exertion History of uterine fibroid Home Medications ?Medication ?Instructions ?Recorded ?Last Taken ?Type cholecalciferol (vitamin D3) 25 25 mcg PO DAILY 03/25/20 Unknown History mcg (1,000 unit) capsule hydrocortisone 2.5 % topical cream 1 applic topical TID PRN 03/25/20 Unknown History Rash/Topical Irritation alendronate 35 mg tablet 35 mg PO QWEEK 06/30/22 Unknown History Held on 07/12/24. Instructions: Ordered estradiol 0.01% (0.1 mg/gram) 1 appful vaginal 2XW Not Specified 06/30/22 Unknown History vaginal cream clobetasol 0.05 % topical ointment 1 applic topical DAILY PRN SKIN 07/05/22 Unknown History calcium ER 600 mg (as carb,cit)-D3 2 tab PO DAILY 07/07/22 Unknown History 12.5 mcg (500 unit) tablet, ext.rel (Citracal-D3 Slow Release) calcium carbonate (Alcalak) 168 mg PO TID PRN dyspepsia 04/11/24 Unknown History Allergy/AdvReac Type Severity Reaction Status Date / Time oxybutynin Allergy Swelling Verified 07/16/24 08:14 risedronate sodium Allergy Chest Verified 07/16/24 08:14 tightness sulfamethoxazole (From Allergy Rash Verified 07/16/24 08:14 Bactrim) trimethoprim (From Bactrim) Allergy Rash Verified 07/16/24 08:14 corn AdvReac Nausea/Vom/ Verified 07/16/24 08:14 Diarrhea ibandronate sodium (From AdvReac Other Verified 07/16/24 08:14 Boniva) oxycodone HCl (From Percodan) AdvReac Nausea Verified 07/16/24 08:14 oxycodone terephthalate AdvReac Nausea Verified 07/16/24 08:14 (From Percodan) pimecrolimus (From Elidel) AdvReac chills Verified 07/16/24 08:14 Proton Pump Inhibitors AdvReac Diarrhea Verified 07/16/24 08:14 raloxifene AdvReac Vision Verified 07/16/24 08:14 problems Family History Mother Myocardial infarction Heart disease Father Cancer pancreas Grandmother Diabetes Grandfather Myocardial infarction Surgical History H/O colonoscopy History of appendectomy History of cataract extraction History of cholecystectomy History of hemorrhoidectomy History of tubal ligation History of esophagogastroduodenoscopy (EGD) (~2009) History of hysterectomy for benign disease Social History Smoking Status: Never smoker alcohol intake: current alcohol intake frequency: a few times a week substance use type: does not use caffeine: Yes Type: coffee Number of servings: 1 and tea Number of servings: 1 what type of physical activity do you participate in: walking and weight training frequency: daily ROS Constitutional Constitutional: Denies fatigue, fever(s), poor appetite, weight gain or weight loss Gastrointestinal Gastrointestinal: Denies belching, bloating, change in bowel habits, change in stool character, chewing difficulty, coffee ground emesis, constipation, cramping, diarrhea, dyspepsia, dysphagia, early satiety, excessive flatus, fecal incontinence, heartburn, hematemesis, hematochezia, hemorrhoids, loose stools, melena, nausea, odynophagia, rectal bleeding, tenesmus, vomiting or weight changes Vital Signs Vital Signs Vital Signs: 07/16/24 08:16 07/16/24 08:16 07/16/24 08:35 Temperature 97.5 F L 97.5 F L Temperature Source Temporal Pulse Rate 64 64 Respiratory Rate 16 16 Respiratory Pattern Normal Blood Pressure 145/61 H 145/61 H Blood Pressure Mean 89 Blood Pressure Source Monitor Blood Pressure Position Semi-Fowlers Blood Pressure Location Right Arm Pulse Ox 99 99 Oxygen Delivery Method Room Air Room Air Weight Weight: 110 lb 3.698 oz Body Mass Index (BMI) 20.8 Physical Exam Const alert, oriented x3, no apparent distress and healthy appearing General Appearance: cooperative GI normal to inspection, nondistended, normoactive bowel sounds, soft to palpation, non-tender and non-distended Percussion: normal to percussion Rectal Exam: deferred Assessment & Plan Assessment/Plan (1) GERD (gastroesophageal reflux disease): PLAN: Assessment and Plan Assessment and Plan (1) GERD (gastroesophageal reflux disease): Status: Acute Plan: This is a 78 yo female pt here today for establishment with [facility]. Pt has a hx of GERD w/ last scope in 2020 showing some metaplasia and inflammation. She does not wish to take PPI or famotidine as it spice grinder her diarrhea and PVCs. I discussed with her that if she is controlled well with lifestyle modifications then we do not need to treat w/ medically therapies. However, after her appointment I noticed she was positive for metaplasia after her last EGD. In this case I think she will need to have an EGD to assess this and make sure it is not progressing. I will send her a message notifying her. She is also due for screening colonoscopy but will discuss this with her PCP as she wants to do cologuard instead. -Continue lifestyle changes -notify her of need for repeat EGD -Will get Cologuard from PCP -f/u as needed
--- NOTE | 2024-07-16 09:48 | PCM.POST.ANE ---
Anesthesia: Postop Eval I Current Vital Signs Temperature: 97 F Pulse Rate: 67 Blood Pressure: 92/64 Respiratory Rate: 16 Pulse Ox: 100 Oxygen Delivery Method: Room Air Assessment Airway patent: Yes Spontaneous unlabored respirations: Yes Mental status: Asleep nausea: No Vomiting: No Anesthesia Complication: No Fluid Hydration Crystalloid volume administer (ml): 30 Total IV fluid infused: 30 Progress Note Anesthesia document: Postop Eval 1 completed: Yes
--- NOTE | 2024-07-16 09:50 | OP.EGD_ITS ---
Patient Name: Shelia Caballero Procedure Date: 07/16/2024 9:20 AM Date of : 1945 Age: 78 Procedure: Upper GI endoscopy Indications: Heartburn, Esophageal reflux, Follow-up of Cardoso's esophagus Providers: Rashaad Huang DO Referring MD: Abdirahman Patel MD Medicines: Monitored Anesthesia Care Patient Profile: This is a 78 year old female. Refer to note in patient chart for documentation of history and physical. Patient has symptoms of chronic heartburn. Her most recent EGD for Cardoso's biopsy. Complications: No immediate complications. Procedure: Pre-Anesthesia Assessment: - Prior to the procedure, a History and Physical was performed, and patient medications and allergies were reviewed. The patient is competent. The risks and benefits of the procedure and the sedation options and risks were discussed with the patient. All questions were answered and informed consent was obtained. Patient identification and proposed procedure were verified by the physician in the pre-procedure area. Mental Status Examination: alert and oriented. Airway Examination: normal oropharyngeal airway and neck mobility. Respiratory Examination: clear to auscultation. CV Examination: normal. Prophylactic Antibiotics: The patient does not require prophylactic antibiotics. Prior Anticoagulants: The patient has taken no anticoagulant or antiplatelet agents. ASA Grade Assessment: III - A patient with severe systemic disease. After reviewing the risks and benefits, the patient was deemed in satisfactory condition to undergo the procedure. The anesthesia plan was to use monitored anesthesia care (MAC). Immediately prior to administration of medications, the patient was re-assessed for adequacy to receive sedatives. The heart rate, respiratory rate, oxygen saturations, blood pressure, adequacy of pulmonary ventilation, and response to care were monitored throughout the procedure. The physical status of the patient was re-assessed after the procedure. After obtaining informed consent, the endoscope was passed under direct vision. Throughout the procedure, the patient's blood pressure, pulse, and oxygen saturations were monitored continuously. The Endoscope was introduced through the mouth, and advanced to the second part of duodenum. The upper GI endoscopy was accomplished without difficulty. The patient tolerated the procedure well. Scope In: 9:36:07 AM Scope Out: 9:38:34 AM Total Procedure Duration Time 0 hours 2 minutes 27 seconds Findings: Non-severe esophagitis with no bleeding was found 38 to 40 cm from the incisors. Biopsies were taken with a cold forceps for histology. Verification of patient identification for the specimen was done. Estimated blood loss was minimal. There were esophageal mucosal changes secondary to established short-segment Cardoso's disease present in the lower third of the esophagus. The maximum longitudinal extent of these mucosal changes was 3 cm in length. Mucosa was biopsied with a cold forceps for histology in a targeted manner at intervals of 1 cm in the lower third of the esophagus. One specimen bottle was sent to pathology. Verification of patient identification for the specimen was done. Estimated blood loss was minimal. The entire examined stomach was normal. Suspect gastroparesis due to absence of peristalsis, patient symptoms and retained gastric contents. No gross lesions were noted in the first portion of the duodenum. Impression: - Non-severe reflux esophagitis with no bleeding. Biopsied. - Esophageal mucosal changes secondary to established short-segment Cardoso's disease. Biopsied. - Normal stomach. - Gastroparesis. - No gross lesions in the first portion of the duodenum. -Check gastrin level, antiparietal cell antibody, antiintrinsic factor antibody and gastric emptying study Recommendation: - Discharge patient to home. - Resume previous diet. - Continue present medications. - Await pathology results. -Gastric emptying study Procedure Code(s): --- Professional --- 55441, Esophagogastroduodenoscopy, flexible, transoral; with biopsy, single or multiple CPT copyright 2021 [employer]. All rights reserved. The codes documented in this report are preliminary and upon death surveys coder review may be revised to meet current compliance requirements. Rashaad Huang DO 07/16/2024 9:49:48 AM This report has been signed electronically. Number of Addenda: 0 Note Initiated On: 07/16/2024 9:20 AM
--- NOTE | 2024-07-16 09:50 | OP.CCLET_ITS ---
07/16/2024 Abdirahman Patel MD Re : Upper GI endoscopy procedure for Shelia Caballero Dear Dr. Patel This procedure was performed on Tuesday, July 16, 2024. My impressions and recommendations are as follows: Impressions : - Non-severe reflux esophagitis with no bleeding. Biopsied. - Esophageal mucosal changes secondary to established short-segment Cardoso's disease. Biopsied. - Normal stomach. - Gastroparesis. - No gross lesions in the first portion of the duodenum. -Check gastrin level, antiparietal cell antibody, antiintrinsic factor antibody and gastric emptying study Recommendations : - Discharge patient to home. - Resume previous diet. - Continue present medications. - Await pathology results. -Gastric emptying study My findings are described in the full procedure note, which is enclosed. If I can be of further assistance, please feel free to contact me at . Sincerely, Rashaad Friend, 07/16/2024 9:49:48 AM This report has been signed electronically.
--- NOTE | 2024-07-16 14:57 | PCM.POSTANE2 ---
Anesthesia Postop Eval I Sum Postop Eval Completion status Anesthesia document: Postop Eval 1 completed: Yes Anesthesia Postop Eval I Summary Anesthesia Postop Eval I Summary: Anesthesia Postop Eval I: Assessment Summary Airway patent Yes 07/16/24 09:49 [email or web address] Spontaneous unlabored Yes 07/16/24 09:49 [email or web address] respirations Mental status Asleep 07/16/24 09:49 [email or web address] nausea No 07/16/24 09:49 [email or web address] Vomiting No 07/16/24 09:49 [email or web address] Anesthesia Postop Eval I: Fluid Summary Crystalloid volume administer 30 07/16/24 09:49 [email or web address] (ml) Colloids volume administered ( ml) Blood Product volume administered (ml) Total IV fluid infused 30 07/16/24 09:49 [email or web address] Anesthesia Postop Eval I: Summary Notes Anesthesia Complication No 07/16/24 09:49 [email or web address] Anesthesia Complication Comment: Post-operative progress note Anesthesia: Postop Eval II Evaluation Mental status: Awake and Calm Pain Level: 2 nausea: No Vomiting: No Complications Anesthesia Complication: No
== END 2024-07-16 10:19 | disposition home or self-care (01) ==
LOC: EN 07:52 → AC 07:56
PROVIDERS: PCP Family Medicine; Referring Provider Family Medicine; Visit Provider Internal Medicine Gastroenterology
PROC: 0DJ08ZZ Inspection of Upper Intestinal Tract, Via Natural or Artificial Opening Endoscopic (ICD-10-PCS; CPT 43235; principal; 2024-07-16 08:55)
DX: K21.00 Gastro-esophageal reflux disease with esophagitis, without bleeding (principal); K44.9 Diaphragmatic hernia without obstruction or gangrene; E78.00 Pure hypercholesterolemia, unspecified; I12.9 Hypertensive chronic kidney disease with stage 1 through stage 4 chronic kidney disease, or unspecified chronic kidney disease; R19.7 Diarrhea, unspecified; N18.9 Chronic kidney disease, unspecified; I49.3 Ventricular premature depolarization; K31.84 Gastroparesis; K22.70 Barrett's esophagus without dysplasia; Z90.710 Acquired absence of both cervix and uterus; Z98.51 Tubal ligation status
CPT/HCPCS: 43239; 88305; 88312; 88341; 88342; A4216; J2405

== ENCOUNTER → 2024-07-25 | Outpatient (CLI) | payer MEDICARE, SELFPAY ==
[2024-07-30 17:08] LABS: Anti-Parietal Cell AB, QN 1.4 Units (0.0-20.0); Gastrin, Serum 51 pg/mL (0-115)
== END | disposition home or self-care (01) ==
LOC: LAB 10:14
PROVIDERS: PCP Family Medicine; Referring Provider Student in an Organized Health Care Education/Training Program; Visit Provider Student in an Organized Health Care Education/Training Program
DX: K21.9 Gastro-esophageal reflux disease without esophagitis (principal)
CPT/HCPCS: 36415; 82941; 83516; 86340

== ENCOUNTER → 2024-08-21 | Outpatient (CLI) | payer MEDICARE, SELFPAY ==
--- NOTE | 2024-08-21 10:45 | NM_ITS ---
PROCEDURE: GASTRIC EMPTYING STUDY 08/21/2024 REASON FOR EXAM: GASTROPARESIS COMPARISON: None. TECHNIQUE: The patient ingested a standard meal of oatmeal and water. Total time taken to ingest the meal was minutes. There was no vomiting postprandially. Anterior and posterior planar images of the upper abdomen were obtained for 1 minute immediately following the meal at 1h,. Regions of interest were drawn, and a geometric mean was used to calculate a [id number]. Medications taken in the past 24 hours that may affect gastric emptying: None RADIOPHARMACEUTICAL: 1.2 mCi of technetium sulfur colloid. FINDINGS: Percent activity remaining in stomach: 1 hour 53 % (normal 37-90%) NM/Gastric Emptying Study IMPRESSION: Normal gastric emptying examination. Reading Location: [id number]
== END | disposition home or self-care (01) ==
LOC: NM 10:45
PROVIDERS: PCP Family Medicine; Referring Provider Student in an Organized Health Care Education/Training Program; Visit Provider Student in an Organized Health Care Education/Training Program
DX: K21.9 Gastro-esophageal reflux disease without esophagitis (principal); K31.84 Gastroparesis
CPT/HCPCS: 78264; A9541

== ENCOUNTER → 2024-09-04 | Outpatient (CLI) | payer MEDICARE, SELFPAY | END | disposition home or self-care (01) | LOC: PSN 11:00 | PROVIDERS: PCP Family Medicine; Referring Provider Internal Medicine Cardiovascular Disease; Visit Provider Internal Medicine Cardiovascular Disease | DX: I49.3 Ventricular premature depolarization (principal) | CPT/HCPCS: 93225; 93226 ==

== ENCOUNTER → 2024-09-20 | Outpatient (CLI) | payer MEDICARE, SELFPAY ==
--- NOTE | 2024-09-20 07:55 | ECHOD_ITS ---
Reason For Study Reason For Study: ARRYTHMIA Procedure This was a 2D Doppler, Color Flow transthoracic echocardiogram. Exam performed in department. Left Ventricle Normal LV size. The left ventricular ejection fraction is 65 %. No regional wall motion abnormalities noted. Right Ventricle Normal RV size. Normal systolic function. Atria Normal left atrium. Normal right atrium. Mitral Valve Normal mitral valve. Tricuspid Valve Normal tricuspid valve. Mild to moderate (1-2+) tricuspid valve insufficiency. Pulmonary artery systolic pressure is 30 mmHg. Aortic Valve Trisinus/trileaflet aortic valve. Pulmonic Valve Normal pulmonic valve. Great Vessels Normal aortic root. The pulmonary artery is normal size. Inferior vena cava collapse with sniff. Pericardium/Pleural No pericardial effusion. MMode/2D Measurements & Calculations LVIDd: 3.4 cm IVSd: 0.94 cm LVOT diam: 2.0 cm LVIDs: 2.6 cm LVPWd: 1.1 cm LVOT area: 3.1 cm2 RVDd: 3.2 cm FS: 22.0 % Ao root diam: 2.5 cm LAV(MOD-bp): 41.8 ml LVAd ap4: 18.3 cm2 LAV(MOD-bp) Indexed: 28.6 ml/m2 LVLd ap4: 5.9 cm LAV(MOD-sp2): 37.1 ml EDV(MOD-sp4): 47.0 ml LAV(MOD-sp4): 46.2 ml EDV(sp4-el): 48.1 ml LVAs ap4: 8.7 cm2 LVLs ap4: 4.6 cm ESV(MOD-sp4): 14.1 ml ESV(sp4-el): 13.9 ml EF(MOD-sp4): 69.9 % EF(sp4-el): 71.2 % SV(MOD-sp4): 32.8 ml SV(sp4-el): 34.3 ml LA A4 area: 15.8 cm2 SI(MOD-sp4): 22.5 ml/m2 LA dimension(2D): 3.7 cm RA A4 area: 9.9 cm2 Time Measurements MV dec time: 0.14 sec Doppler Measurements & Calculations MV E max mookie: 53.9 cm/sec Lat Peak E' Mookie: 6.1 cm/sec Med Peak E' Mookie: 5.3 cm/sec MV A max mookie: 79.7 cm/sec E/E' lat: 8.8 E/E' med: 10.2 MV E/A: 0.68 MV V2 max: 71.5 cm/sec Ao V2 max: 92.5 cm/sec MV max P.1 mmHg MV dec slope: 412.1 cm/sec2 Ao max P.4 mmHg MV V2 mean: 45.3 cm/sec Ao V2 mean: 66.5 cm/sec MV mean P.91 mmHg Ao mean P.0 mmHg MV V2 VTI: 30.6 cm Ao V2 VTI: 22.0 cm AV (velocity ratio): 0.80 MVA(VTI): 1.8 cm2 MONSTER(I,D): 2.5 cm2 MONSTER(V,D): 2.7 cm2 LV V1 max: 80.8 cm/sec SV(LVOT): 54.2 ml PA V2 max: 91.0 cm/sec LV V1 max P.6 mmHg PA V2 mean: 69.6 cm/sec LV V1 mean P.2 mmHg LV V1 mean: 49.6 cm/sec LV V1 VTI: 17.6 cm TR max mookie: 259.2 cm/sec TR max P.9 mmHg ECHO/Echo Complete Interpretation Summary Normal LV size. The left ventricular ejection fraction is 65 %. Mild to moderate (1-2+) tricuspid valve insufficiency. Pulmonary artery systolic pressure is 30 mmHg. Ordering Physician: Hua Frances Referring Physician: Juan Daniel, Hua Performed By: Izabela Jack RCS
== END | disposition home or self-care (01) ==
PROVIDERS: PCP Family Medicine; Referring Provider Internal Medicine Cardiovascular Disease; Visit Provider Internal Medicine Cardiovascular Disease
DX: I49.3 Ventricular premature depolarization (principal)
CPT/HCPCS: 93306

== ENCOUNTER 2024-09-24 14:44 | Outpatient (CLI) | payer MEDICARE, SELFPAY ==
--- NOTE | 2024-09-24 14:57 | CT_ITS ---
PROCEDURE: LIMITED CHEST CT CARDIAC ONLY REASON FOR EXAM: HYPERLIPIDEMIA TECHNIQUE: High resolution computed tomographic imaging of the chest was performed with particular attention paid to the coronary arteries. Images from the examination were enlarged for the presence and extent of coronary artery calcification, using coronary calcium quantification software. The patient tolerated the procedure well and there were no complications. The results of the coronary calcification analysis are provided below, along with cash applications representative cross sectional images from the examination and a schematic illustration of the coronary arteries and the location of any detected calcification. The patient's score is compared with published data relating to scores for people of similar age and the same gender. One or more dose reduction techniques were used (e.g., Automated exposure control, adjustment of the mA and/or kV according to patient size, use of iterative reconstruction technique). COMPARISON: None. FINDINGS: Left main: 0. Left anterior descending: Left circumflex artery: 0. Right coronary artery: 0. Total Agatston score: 0. Mild bilateral basilar atelectatic pulmonary changes are noted. CT/Limited Chest CT Cardiac Only IMPRESSION: Coronary artery calcification (CAC) is 0. The total calcium score 0 is below the 25th percentile for women over the age o f 74. Exact percentile calculated to be 0%. This means 0% of the population has similar calcium score and 99% of the population has a higher calcium score. Reading Location: [facility]
--- NOTE | 2024-09-24 17:50 | CA.SCORE ---
Calcium Scoring Date of Study:: 09/24/24 Indications Indications: Hyperlipemia Coronary Calcium Scoring: High-resolution Computed Tomographic imaging of the chest was performed on [09/24/24 ], with particular attention paid to the coronary arteries. Images from the examination were analyzed for the presence and extent of coronary artery calcification , using coronary calcium quantification software. The patient tolerated the procedure well and there were no complications. The results of the coronary calcification analysis are provided below. Findings Coronary Artery Left Main (LM): 0 Left Anterior Descending (LAD): 0 Left Circumflex (LCX): 0 Right Coronary Artery (RCA): 0 Total Agatston Score: 0 Percentile Rankin Calcium Scoring Interpretation: Different methods to categorize the overall amount of coronary plaque. Overall amount CAC SIS Visual of coronary plaque P1 Mild -100 <2 1-2 vessels with mild amount of plaque P2 Moderate 101-300 3-4 1-2 vessels with moderate amount, 3 vessels with mild amount of plaque P3 Severe 301-999 5-7 3 vessels with moderate amount, 1 vessel with severe amount of plaque P4 Extensive >1000 >8 2-3 vessels with severe amount of plaque Conclusion: No atherosclerotic plaques
== END 2024-09-24 23:59 | disposition home or self-care (01) ==
LOC: CT 14:48
PROVIDERS: PCP Family Medicine; Referring Provider Internal Medicine Cardiovascular Disease; Visit Provider Internal Medicine Cardiovascular Disease
DX: I49.3 Ventricular premature depolarization (principal)
CPT/HCPCS: 75571; 76380

== ENCOUNTER → 2024-11-19 | Outpatient (CLI) | payer MEDICARE, SELFPAY ==
--- NOTE | 2024-11-19 12:55 | BI_ITS ---
EXAM: SCRN MAMM (CAD)W/LADARIUS BILAT DATE: 11/19/2024 CLINICAL HISTORY: F, Age 78 y/o , SCREENING TECHNIQUE: SCRN MAMM (CAD)W/LADARIUS BILAT COMPARISON: Prior exam(s) dated 10/25/2023, 10/21/2022, 10/20/2021. FINDINGS: TISSUE DENSITY: The breasts are almost entirely fatty. Bilateral Breast Mammographic Findings: No significant masses, calcifications or other abnormalities are identified. BI/SCRN MAMM (CAD)W/LADARIUS BILAT IMPRESSION: There is no mammographic evidence of malignancy. OVERALL FINAL ASSESSMENT BI-RADS 1: NEGATIVE. RECOMMEND ANNUAL MAMMOGRAPHIC SCREENING. RECOMMENDATION: Routine annual follow-up in 1 Year. A letter with findings and recommendations will be mailed to the patient. Reading Location: [id number]
== END | disposition home or self-care (01) ==
LOC: OPBI 12:54
PROVIDERS: PCP Family Medicine; Referring Provider Obstetrics & Gynecology; Visit Provider Obstetrics & Gynecology
DX: Z12.31 Encounter for screening mammogram for malignant neoplasm of breast (principal)
CPT/HCPCS: 77063; 77067